=== PATIENT | female | born 1960 | race Caucasian/White ===

== ENCOUNTER 2019-04-21 18:56 | Emergency (ER) | payer MEDICARE, MEDICAID ==
[~2019-04-21] VITALS: Ht 167.6 cm; Wt 77.1 kg
[~2019-04-21 18:56] MED LIST: FOLIC ACID; LORA0.5T; NAPR-243 PO; VALPROIC ACID; VLP250480
--- OUTSIDE RECORDS SUMMARY | 2019-04-21 19:01 | XMS REPORT ---
Author Author DANIEL LEI Organization [facility] Address [address] [place] [address] Care Team Providers Care Sales Inspector Name Role Phone DOPANCHOA Unavailable PROBLEMS Unknown Problems ALLERGIES Substance Reaction Event Type Date Status CODIENE Unknown Non Drug Allergy Dec, Active ENCOUNTERS Encounter Location Date Diagnosis [facility] [id number] [place] [phone] Dec, Encounter for dental examination Z01.20 [facility] [id number] [place] [address] [phone] Apr, Dental examination Z01.20 [facility] [id number] [place] [address] [phone] Dec, Dental examination Z01.20 [facility] [id number] [place] [address] [phone] Oct, Encounter for dental examination and cleaning without abnormal findings Z01.20 IMMUNIZATIONS No Known Immunizations SOCIAL HISTORY Never Assessed REASON FOR VISIT 6 mo recall PLAN OF CARE Activity Details Follow Up 6 Months Reason:Recall VITAL SIGNS Blood pressure systolic 141 mmHg 2017-12-12 Blood pressure diastolic 94 mmHg 2017-12-12 MEDICATIONS Medication Instructions Dosage Frequency Start Date End Date Duration Status Valproic Acid 250 MG/5ML Orally Twice a day 5 ml 12h Active RESULTS No Results PROCEDURES Procedure Date Ordered Result Body Site PERIODIC ORAL EXAMINATION December 12, 2017 INTRAORL-PERIAPICAL 1 FILM 53583 December 12, 2017 PROPHYLAXIS - ADULT December 12, 2017 BITEWINGS - TWO FILMS December 12, 2017 TOPICAL FLUORIDE VARNISH December 12, 2017 INSTRUCTIONS MEDICATIONS ADMINISTERED No Known Medications MEDICAL (GENERAL) HISTORY Type Description Date Medical History APPENDIX REMOVE 2006 Medical History WISDOM TEETH REMOVED Medical History seizures Hospitalization History DEHYDRYATION AUGUST 2016
--- OUTSIDE RECORDS SUMMARY | 2019-04-21 19:01 | XMS REPORT ---
Author Author LEX HOPKINS Organization [facility] Address [address] [place] [address] Phone Unavailable Care Team Providers Care [facility] Psychiatrist Name Role Phone LXE HOPKINS Unavailable Unavailable PROBLEMS Unknown Problems ALLERGIES Substance Reaction Event Type Date Status CODIENE Unknown Non Drug Allergy Oct, Active SOCIAL HISTORY No smoking Hx information available PLAN OF CARE Activity Details Follow Up POSSIBLE FILL #24 [address] ALEJANDRO Reason:POSSIBLE DECAY MESIAL #24 AND PATIENT NEEDS ANDREIA WITH DR ALEJANDRO VITAL SIGNS MEDICATIONS Medication Instructions Dosage Frequency Start Date End Date Duration Status Valproic Acid 250 MG/5ML Orally Twice a day 5 ml 12h Active RESULTS No Results PROCEDURES Procedure Date Ordered Related Diagnosis Body Site INTRAORL-PERIAPICAL 1 FILM 43284 Oct 16, 2016 PANORAMIC FILM SEE ALSO CODE 54946 Oct 16, 2016 TOPICAL FLUORIDE VARNISH Oct 16, 2016 PROPHYLAXIS - ADULT Oct 16, 2016 Billing Notes on claim Oct 16, 2016 INTRAORL-PERIAPICAL EA ADD FILM Oct 16, 2016 INTRAORL-PERIAPICAL EA ADD FILM Oct 16, 2016 INTRAORL-PERIAPICAL EA ADD FILM Oct 16, 2016 INTRAORL-PERIAPICAL EA ADD FILM Oct 16, 2016 IMMUNIZATIONS No Known Immunizations
--- OUTSIDE RECORDS SUMMARY | 2019-04-21 19:02 | XMS REPORT | Continuity of Care Document ---
Author Organization Unknown Address Unknown Allergies Active Description Code Type Severity Reaction Onset Reported/Identified Relationship to Patient Clinical Status Yes CODEINE SULFATE CODEINE SULFATE SEVERE Yes CODEINE SULFATE SEVERE DERMATOLOGICAL - KRYSTAL Yes CODEINE SULFATE MILD DERMATOLOGICAL - KRYSTAL Yes CODEINE SULFATE MILD OTHER Yes DILANTIN MODERATE DERMATOLOGICAL - KRYSTAL Yes PENICILLINS MODERATE DERMATOLOGICAL - KRYSTAL Yes codeine [id number] Drug Allergy Unknown N/A 12/09/2007 Medications Medication Packaging Start Date Stop Date Route Dosage Sig ONDANSETRON VIAL INJ 4 MG/2CC (ZOFRAN 2CC VIAL) MG 08/27/2016 08/27/2016 PRN ONCE NORMAL SALINE 1000CC IV BAG INJ 0.9 % (NS 1000CC IV BAG) ml 08/27/2016 09/11/2016 CONTINUOUSEVERY 0 Hour Lidocaine HCl jelly 2% 5cc tube (Xylocaine) ELISABET 02/13/2017 02/13/2017 ONCE&2315 ASA 81MG CHEWABLE TAB 81 MG (BABY ASPIRIN) MG 05/23/2017 05/23/2017 ONCE&0510 NORMAL SALINE 1000CC IV BAG INJ 0.9 % (NS 1000CC IV BAG) ml 06/06/2017 06/21/2017 CONTINUOUSEVERY 0 Hour NORMAL SALINE 1000CC IV BAG INJ 0.9 % (NS 1000CC IV BAG) ml 06/06/2017 06/21/2017 CONTINUOUSEVERY 0 Hour Valproic acid oral solution 250mg/5cc (Depakote) MLS 06/06/2017 07/06/2017 BID&0800,2000 PANTOPAZOLE VIAL INJ 40 MG (PROTONIX IV) MG 06/07/2017 06/16/2017 Daily&0900 Problems Date Dx Coded Attending Type Code Diagnosis Diagnosed By 08/27/2016 MEDHAT MEYER 276.51 DEHYDRATION 08/27/2016 BATTAGLER, MEDHAT A 558.9 OTHER AND UNSPECIFIED NONINFECTIOUS GASTROENTERITIS AND COLITIS 08/27/2016 BETSYJAMIMEDHAT W E86.0 DEHYDRATION 08/27/2016 MEDHAT MEYER A K52.9 NONINFECTIVE GASTROENTERITIS AND COLITIS, UNSPECIFIED 02/13/2017 Nova Norman A 780.39 OTHER CONVULSIONS 02/13/2017 Nova Norman W 989.5 TOXIC EFFECT OF VENOM 02/13/2017 Nova Norman A R56.9 UNSPECIFIED CONVULSIONS 02/13/2017 Nova Norman W T63.461A TOXIC EFFECT OF VENOM OF WASPS, ACCIDENTAL, INIT 06/08/2017 Mohan Rutherford W 345.90 EPILEPSY, UNSPECIFIED, WITHOUT MENTION OF INTRACTABLE EPILEPSY 06/08/2017 Mohan Rutherford W 458.9 06/08/2017 Mohan Rutherford W 780.2 SYNCOPE AND COLLAPSE 06/08/2017 BrownMohan W 780.79 OTHER MALAISE AND FATIGUE 06/08/2017 Mohan Rutherford W 787.91 DIARRHEA 06/08/2017 Mohan Rutherford W G40.909 EPILEPSY, UNSP, NOT INTRACTABLE, WITHOUT STATUS EPILEPTICUS 06/08/2017 Mohan Rutherford W I95.9 HYPOTENSION, UNSPECIFIED 06/08/2017 BrownMohan W R19.7 DIARRHEA, UNSPECIFIED 06/08/2017 BrownMohan W R53.1 WEAKNESS 06/08/2017 BrownMohan W R55 SYNCOPE AND COLLAPSE 07/02/2017 BrownMohan W 599.0 URINARY TRACT INFECTION, SITE NOT SPECIFIED 07/02/2017 BrownMohan W P39.3 URINARY TRACT INFECTION 07/02/2017 Brown Mohan W 599.0 URINARY TRACT INFECTION, SITE NOT SPECIFIED 07/02/2017 Brown Mohan W P39.3 URINARY TRACT INFECTION 09/21/2017 Helga Hogan W 345.80 OTHER FORMS OF EPILEPSY AND RECURRENT SEIZURES, WITHOUT MENTION OF INTRACTABLE EPILEPSY 09/21/2017 Helga Hogan W 530.81 ESOPHAGEAL REFLUX 09/21/2017 Helga Hogan W 780.39 OTHER CONVULSIONS 09/21/2017 Helga Hogan W G40.89 OTHER SEIZURES 09/21/2017 Helga Hogan W K21.9 GASTRO- ESOPHAGEAL REFLUX DISEASE WITHOUT ESOPHAGITIS 09/21/2017 Samira, Helga W R56.9 UNSPECIFIED CONVULSIONS 06/14/2018 Samira, Helga W 780.39 OTHER CONVULSIONS 06/14/2018 Samira, Helga W R56.9 UNSPECIFIED CONVULSIONS 06/14/2018 Samira, Helga W 319 UNSPECIFIED INTELLECTUAL DISABILITIES 06/14/2018 Samira, Helga W 530.81 ESOPHAGEAL REFLUX 06/14/2018 Samira, Helga W 780.39 OTHER CONVULSIONS 06/14/2018 Samira, Helga W 788.30 URINARY INCONTINENCE, UNSPECIFIED 06/14/2018 Samira, Helga W 794.4 NONSPECIFIC ABNORMAL RESULTS OF FUNCTION STUDY OF KIDNEY 06/14/2018 Samira, Helga W F79 UNSPECIFIED INTELLECTUAL DISABILITIES 06/14/2018 Samira, Helga W K21.9 GASTRO- ESOPHAGEAL REFLUX DISEASE WITHOUT ESOPHAGITIS 06/14/2018 Samira, Helga W R32 UNSPECIFIED URINARY INCONTINENCE 06/14/2018 Samira, Helga W R56.9 UNSPECIFIED CONVULSIONS 06/14/2018 Samira, Helga W R94.4 ABNORMAL RESULTS OF KIDNEY FUNCTION STUDIES 06/14/2018 Samira, Helga W 319 UNSPECIFIED INTELLECTUAL DISABILITIES 06/14/2018 Samira, Helga W 530.81 ESOPHAGEAL REFLUX 06/14/2018 Samira, Helga W 780.39 OTHER CONVULSIONS 06/14/2018 Samira, Helga W 788.30 URINARY INCONTINENCE, UNSPECIFIED 06/14/2018 Samira, Helga W 794.4 NONSPECIFIC ABNORMAL RESULTS OF FUNCTION STUDY OF KIDNEY 06/14/2018 Samira, Helga W F79 UNSPECIFIED INTELLECTUAL DISABILITIES 06/14/2018 Samira, Helga W K21.9 GASTRO- ESOPHAGEAL REFLUX DISEASE WITHOUT ESOPHAGITIS 06/14/2018 Samira, Helga W R32 UNSPECIFIED URINARY INCONTINENCE 06/14/2018 Samira, Helga W R56.9 UNSPECIFIED CONVULSIONS 06/14/2018 Samira, Helga W R94.4 ABNORMAL RESULTS OF KIDNEY FUNCTION STUDIES 07/16/2018 Samira, Helga W 780.39 OTHER CONVULSIONS 07/16/2018 Samira, Helga W R56.9 UNSPECIFIED CONVULSIONS 09/26/2018 Samira, Helga W 780.39 OTHER CONVULSIONS 09/26/2018 Samira, Helga W R56.9 UNSPECIFIED CONVULSIONS 09/26/2018 Samira, Helga W V72.31 ROUTINE GYNECOLOGICAL EXAMINATION 09/26/2018 Samira, Helga W V76.19 OTHER SCREENING BREAST EXAMINATION 09/26/2018 Helga Hogan Z01.411 ENCOUNTER FOR GYNECOLOGICAL EXAMINATION (GENERAL) (ROUTINE) WITH ABNORMAL FINDINGS 09/26/2018 Helga Hogan Z12.39 ENCOUNTER FOR OTHER SCREENING FOR MALIGNANT NEOPLASM OF BREAST 09/26/2018 Helga Hogan W 780.39 OTHER CONVULSIONS 09/26/2018 Helga Hogan R56.9 UNSPECIFIED CONVULSIONS 09/26/2018 Helga Hogan V72.31 ROUTINE GYNECOLOGICAL EXAMINATION 09/26/2018 Helga Hogan V76.19 OTHER SCREENING BREAST EXAMINATION 09/26/2018 Helga Hogan Z01.411 ENCOUNTER FOR GYNECOLOGICAL EXAMINATION (GENERAL) (ROUTINE) WITH ABNORMAL FINDINGS 09/26/2018 Helga Hogan Z12.39 ENCOUNTER FOR OTHER SCREENING FOR MALIGNANT NEOPLASM OF BREAST 10/31/2018 Helga Hogan W 319 UNSPECIFIED INTELLECTUAL DISABILITIES 10/31/2018 Helga Hogan W 530.81 ESOPHAGEAL REFLUX 10/31/2018 Helga Hogan W 780.39 OTHER CONVULSIONS 10/31/2018 Helga Hogan F79 UNSPECIFIED INTELLECTUAL DISABILITIES 10/31/2018 Helga Hogan K21.9 GASTRO- ESOPHAGEAL REFLUX DISEASE WITHOUT ESOPHAGITIS 10/31/2018 Helga Hogan R56.9 UNSPECIFIED CONVULSIONS 10/31/2018 Helga Hogan V72.31 ROUTINE GYNECOLOGICAL EXAMINATION 10/31/2018 Helga Hogan V76.19 OTHER SCREENING BREAST EXAMINATION 10/31/2018 Helga Hogan Z01.411 ENCOUNTER FOR GYNECOLOGICAL EXAMINATION (GENERAL) (ROUTINE) WITH ABNORMAL FINDINGS 10/31/2018 Helga Hogan Z12.39 ENCOUNTER FOR OTHER SCREENING FOR MALIGNANT NEOPLASM OF BREAST Procedures There is no data. Results Test Result Range Urinalysis - 08/27/16 14:20 Influenza - 08/27/16 14:29 Influenza NEGATIVE FOR A and B 0.00-0.00 Urinalysis - 08/27/16 16:17 Icotest N/A Negative Urine Casts Calcium Oxalate- Occassional ; Amorphous Material -Few Urine Volume Urine Volume Sufficient (10mL) Urine Yeast No Yeast present Urine-Appearance Clear Clear Urine-Bacteria Trace Urine-Bilirubin Negative Negative Urine-Blood Negative Negative Urine-Color Yellow Colorless-Lt. Yellow Urine-Epithelial Cells 5-10/HPF Urine-Glucose Negative Negative Urine-Ketones Negative Negative Urine-Leukocytes Negative Negative Urine-Nitrite Negative Negative Urine-Other Urine Saved if Culture Needed (48hrs from time of collection) Urine-pH 6.0 5-8.5 Urine-Protein Negative Negative Urine-RBC 0-2/HPF Urine-Specific [place] <=1.005 1.000-1.030 Urine-WBC 2-5/HPF Urobilinogen 0.2 E.U./dL 0.2-1.0 BMP - 08/30/16 12:11 Anion Gap 12 6-14 BUN 8 mg/dL 5-25 Calcium 9.3 mg/dL 8.3-10.4 Chloride 105 mmol/L 95-114 CO2 31 mEq/L 22-33 Creat 0.91 mg/dL 0.50-1.50 eGFR 64 mL/min/1.73m2 >59 Glucose 83 mg/dL 70-110 Osmo 295 280-295 Potassium 4.1 mmol/L 3.5-5.3 Sodium 144 mmol/L 134-148 Valproic Acid - 12/26/16 09:52 Valproic Acid 72.6 ug/mL 55.0-105.0 Comprehensive Metabolic Panel - 02/13/17 23:05 Albumin 3.4 g/dL 3.6-5.1 ALP 51 U/L 35-130 ALT 28 U/L 6-45 Anion Gap 12 6-14 AST 25 U/L 2-40 BUN 20 mg/dL 5-25 Calcium 8.9 mg/dL 8.3-10.4 Chloride 105 mmol/L 95-114 CO2 27 mEq/L 22-33 Creat 1.28 mg/dL 0.50-1.50 eGFR 43 mL/min/1.73m2 >59 Globulin 2.9 g/dL 2.3-3.5 Glucose 106 mg/dL 70-110 Osmo 292 280-295 Potassium 4.4 mmol/L 3.5-5.3 Sodium 140 mmol/L 134-148 TBil 0.3 mg/dL 0.2-1.2 TP 6.3 g/dL 6.0-8.3 Valproic Acid - 02/13/17 23:05 Valproic Acid 71.9 ug/mL 55.0-105.0 Urinalysis - 02/14/17 00:09 Icotest N/A Negative Urine Crystals Amorphous material: few/HPF Urine Volume Urine Volume Sufficient (10mL) Urine-Appearance Slightly cloudy Clear Urine-Bacteria Trace Urine-Bilirubin Negative Negative Urine-Blood Trace-lysed Negative Urine-Color Yellow Colorless-Lt. Yellow Urine-Epithelial Cells 0-5/HPF Urine-Glucose Negative Negative Urine-Ketones Negative Negative Urine-Leukocytes 1+ Negative Urine-Nitrite Negative Negative Urine-Other Culture to follow Urine-pH 5.5 5-8.5 Urine-Protein Negative Negative Urine-RBC 0-2/HPF Urine-Specific [place] 1.010 1.000-1.030 Urine-WBC 5-10/HPF Urobilinogen 0.2 0.2-1.0 Urine Culture - 02/14/17 00:10 PRELIM CULTURE RESULTS >100,000 Gram Positive Mixed Samira [id number] Skin Contaminant FINAL CULTURE RESULTS No Further Workup done MEDIA PLATED Setup at 00:33 on 02/14/2017 CULTURE SOURCE voided urine Troponin I - 05/23/17 05:05 Troponin <0.020 ng/mL 0.0-0.4 Troponin I - 05/23/17 06:49 Troponin <0.020 ng/mL 0.0-0.4 Thyroid Stimulating Hormone - 06/06/17 10:40 TSH 4.71 mIU/mL 0.32-5.00 Urinalysis - 06/06/17 12:13 Icotest N/A Negative Urine Volume Urine Volume Sufficient (10mL) Urine Yeast No Yeast present Urine-Appearance Clear Clear Urine-Bacteria Negative Urine-Bilirubin Negative Negative Urine-Blood Negative Negative Urine-Color Yellow Colorless-Lt. Yellow Urine-Glucose Negative Negative Urine-Ketones Negative Negative Urine-Leukocytes Negative Negative Urine-Nitrite Negative Negative Urine-Other Urine Saved if Culture Needed (48hrs from time of collection) Urine-pH 7.0 5-8.5 Urine-Protein Negative Negative Urine-RBC Negative Urine-Specific [place] 1.010 1.000-1.030 Urine-WBC Rare/HPF Urobilinogen 0.2 E.U./dL 0.2-1.0 Cardiac Panel - 06/06/17 13:45 CK 119 U/L 26-174 CK-MB 2.8 ng/ml 0.0-9.2 Myoglobin 99.7 ng/ml 1.6-106.0 Troponin <0.020 ng/mL 0.0-0.4 Cardiac Panel - 06/06/17 16:33 CK 116 U/L 26-174 CK-MB 2.5 ng/ml 0.0-9.2 Myoglobin 98.1 ng/ml 1.6-106.0 Troponin <0.020 ng/mL 0.0-0.4 Cardiac Panel - 06/06/17 22:41 CK 108 U/L 26-174 CK-MB 2.1 ng/ml 0.0-9.2 Myoglobin 92.8 ng/ml 1.6-106.0 Troponin 0.063 ng/mL 0.000-0.400 BMP - 06/07/17 07:05 Anion Gap 12 6-14 BUN 6 mg/dL 5-25 Calcium 8.8 mg/dL 8.3-10.4 Chloride 106 mmol/L 95-114 CO2 26 mEq/L 22-33 Creat 0.91 mg/dL 0.50-1.50 eGFR 64 mL/min/1.73m2 >59 Glucose 72 mg/dL 70-110 Osmo 284 280-295 Potassium 4.5 mmol/L 3.5-5.3 Sodium 139 mmol/L 134-148 Urinalysis, Dipstick Only - 07/02/17 16:20 Urine-Bilirubin Negative Negative Urine-Blood Negative Negative Urine-Glucose Negative Negative Urine-Ketones Negative Negative Urine-Leukocytes Trace Negative Urine-Nitrite Negative Negative Urine-pH 7.0 5-8.5 Urine-Protein Negative Negative Urine-Specific [place] 1.015 1.000-1.030 Urobilinogen 0.2 E.U./dL 0.2-1.0 Urine Culture - 07/02/17 16:20 PRELIM CULTURE RESULTS <10,000 Gram Positive Mixed Samira [id number] Skin Contaminant FINAL CULTURE RESULTS 10,000-20,000 Gram Positive Mixed Samira [id number] Skin Contaminant [id number] Further Workup done MEDIA PLATED Setup at 14:25 on 07/03/2017 CULTURE SOURCE [id number] Thyroid Stimulating Hormone - 09/21/17 13:47 TSH 2.69 mIU/mL 0.32-5.00 Valproic Acid - 12/14/17 09:18 Valproic Acid 69.8 ug/mL 55.0-105.0 Valproic Acid - 04/03/18 08:12 Valproic Acid 114.8 ug/mL 55.0-105.0 Valproic Acid - 04/19/18 08:07 Valproic Acid 88.6 ug/mL 55.0-105.0 Valproic Acid - 06/14/18 13:50 Valproic Acid 147.5 ug/mL 55.0-105.0 Valproic Acid - 07/16/18 09:10 Valproic Acid 88.2 ug/mL 55.0-105.0 Valproic Acid - 09/26/18 15:03 Valproic Acid 111.3 ug/mL 55.0-105.0 Pap IG (Image Guided) - 09/26/18 15:03 DIAGNOSIS: Comment Specimen adequacy: Comment Performed by: Comment QC reviewed by: Comment . . Note: Comment Test Methodology: Comment Valproic Acid - 10/31/18 08:22 Valproic Acid 94.4 ug/mL 55.0-105.0 Encounters ACCT No. Visit Date/Time Discharge Status Pt. Type Provider Facility Loc./Unit Complaint [id number] 08/22/2013 13:58:00 08/22/2013 16:53:00 DIS Emergency [id number] 04/21/2019 18:57:00 ACT Emergency LORENZO CHAVIS APRN [facility] ER R KNEE PAIN [id number] 12/12/2017 14:00:00 12/12/2017 23:59:59 CLS Outpatient RAYMOND MCNAMARA [facility] [id number] 10/31/2018 08:17:00 10/31/2018 23:59:00 DIS Outpatient SamiraHelga [id number] 09/26/2018 15:03:00 09/26/2018 23:59:00 DIS Outpatient Samira, Helga [id number] 07/16/2018 09:07:00 07/16/2018 23:59:00 DIS Outpatient Samira, Helga [id number] 06/14/2018 14:31:00 06/14/2018 23:59:00 DIS Outpatient Samira, Helga [id number] 04/19/2018 08:04:00 04/19/2018 23:59:00 DIS Outpatient Samira, Helga [id number] 04/03/2018 08:09:00 04/03/2018 23:59:00 DIS Outpatient SamiraHelga [id number] 12/14/2017 09:06:00 12/14/2017 23:59:00 DIS Outpatient Helga Hogan [id number] 09/21/2017 13:47:00 09/21/2017 23:59:00 DIS Outpatient Helga Hogan [id number] 07/03/2017 09:52:00 07/03/2017 23:59:00 DIS Outpatient Mohan Rutherford [id number] 07/02/2017 19:10:00 07/02/2017 23:59:00 DIS Outpatient Mohan Rutherford [id number] 06/06/2017 10:33:00 06/08/2017 22:57:00 DIS Outpatient KrishOmidMohan [facility]G [id number] 05/23/2017 04:23:00 05/23/2017 07:34:00 DIS Outpatient [facility] ER [id number] 02/13/2017 22:32:00 02/13/2017 23:58:00 [id number] 12/26/2016 09:49:00 12/26/2016 23:59:00 DIS Outpatient Omid Rutherfordlas [id number] 08/30/2016 12:04:00 08/30/2016 23:59:00 DIS Outpatient Mohan Rutherford [id number] 08/27/2016 14:11:00 08/27/2016 17:40:00 DIS Outpatient BETSY [facility] ER [id number] 08/27/2016 14:31:42 Document Registration [id number] 07/02/2017 19:10:00 Document Registration [id number] 10/03/2018 18:09:00 Document Registration
--- OUTSIDE RECORDS SUMMARY | 2019-04-21 19:02 | XMS REPORT ---
Author Author LINDA ALONZO Organization [facility] Address [address] [place] [address] Phone Unavailable Care Team Providers Care Mixer Lever Operator Name Role Phone LINDA ALONZO Unavailable Unavailable PROBLEMS Unknown Problems ALLERGIES Substance Reaction Event Type Date Status CODIENE Unknown Non Drug Allergy Apr, Active ENCOUNTERS Encounter Location Date Diagnosis [facility] [address] [id number] [id number] Dec, Encounter for dental examination Z01.20 [facility] [address] [id number] [id number] Apr, Dental examination Z01.20 [facility] [address] [id number] [id number] Dec, Dental examination Z01.20 [facility] [address] [id number] [phone] Oct, Encounter for dental examination and cleaning without abnormal findings Z01.20 IMMUNIZATIONS No Known Immunizations SOCIAL HISTORY Never Assessed REASON FOR VISIT prophy PLAN OF CARE Activity Details Follow Up 6 Months Reason:recall VITAL SIGNS Blood pressure systolic 116 mmHg 2017-04-16 Blood pressure diastolic 76 mmHg 2017-04-16 MEDICATIONS Medication Instructions Dosage Frequency Start Date End Date Duration Status Valproic Acid 250 MG/5ML Orally Twice a day 5 ml 12h Active RESULTS No Results PROCEDURES Procedure Date Ordered Result Body Site PROPHYLAXIS - ADULT April 16, 2017 TOPICAL FLUORIDE VARNISH April 16, 2017 INSTRUCTIONS MEDICATIONS ADMINISTERED No Known Medications MEDICAL (GENERAL) HISTORY Type Description Date Medical History APPENDIX REMOVE 2006 Medical History WISDOM TEETH REMOVED Medical History seizures Hospitalization History DEHYDRYATION AUGUST 2016
--- NOTE | 2019-04-21 19:08 | ED Lower Extremity ---
General Stated Complaint: R KNEE PAIN Source: patient Exam Limitations: no limitations History of Present Illness Date Seen by Provider: Apr 21, 2019 Time Seen by Provider: 19:09 Initial Comments To ER with reports of right knee pain. [place] she went to get from her chair up and states that her knee "gave out". She did not fall to the floor but was slowly lowered. She was then helped up and in the car. Onset: just prior to arrival Severity: moderate Pain/Injury Location: right knee Method of Injury: fell Modifying Factors: Worse With Movement Allergies and Home Medications Allergies Coded Allergies: Codeine (Verified Allergy, Unknown, 12/09/07) Home Medications Naproxen 500 Mg Tablet, 1 EACH PO BID PRN for PAIN Prescribed by: LORENZO CHAVIS on 08/22/13 1600 Patient Home Medication List Home Medication List Reviewed: Yes Review of Systems Constitutional: see HPI EENTM: see HPI Respiratory: no symptoms reported Cardiovascular: no symptoms reported Genitourinary: no symptoms reported Musculoskeletal: see HPI Skin: no symptoms reported Psychiatric/Neurological: No Symptoms Reported Past Twvthjh-Cvmrra-Eebvxh Hx Patient Social History Recent Foreign Travel: No Contact w/Someone Who Travel: No Physical Exam Vital Signs Vital Signs - First Documented 04/21/19 19:00 Temp 98.3 Pulse 99 Resp 20 B/P (MAP) 146/98 (114) Pulse Ox 97 O2 Delivery Room Air Capillary Refill : Height, Weight, BMI Height: '" Weight: 170lbs. oz. 77.384776zo; BMI Method: General Appearance: WD/WN, no apparent distress Respiratory: no respiratory distress, no accessory muscle use Hips: bilateral hip non-tender, bilateral hip normal inspection, bilateral hip normal range of motion Legs: bilateral leg non-tender, bilateral leg normal inspection, bilateral leg normal range of motion Knees: right knee pain, right knee other (no deformity no effusion. Hold the leg in full extension at the knee. Posterior tibial pulses are nonpalpable bilaterally, dopplerable bilaterally.) Ankles: bilateral ankle non-tender, bilateral ankle normal inspection, bilateral ankle normal range of motion Feet: bilateral foot non-tender, bilateral foot normal inspection Neurologic/Psychiatric: alert, normal mood/affect, oriented x 3 Skin: normal color, warm/dry Progress/Results/Core Measures Results/Orders My Orders Orders - LORENZO CHAVIS BISTRO ATTENDANT Oxycodone/Apap 5/325mg Tablet (Percocet (04/21/19 19:15) Knee, Right, 3 Views (04/21/19 19:07) Tibia/Fibula, Right, 2 Views (04/21/19 19:07) Vital Signs/I&O 04/21/19 19:00 Temp 98.3 Pulse 99 Resp 20 B/P (MAP) 146/98 (114) Pulse Ox 97 O2 Delivery Room Air Departure Impression Primary Impression: Internal derangement of right knee Disposition: HOME, SELF-CARE Condition: Stable Departure-Patient Inst. Decision time for Depature: 19:56 Referrals: NO,LOCAL PHYSICIAN (PCP/Family) Primary Care Physician Patient Instructions: Internal Derangement of the Knee Add. Discharge Instructions: 1. Pain medication as directed which should include Tylenol and ibuprofen. Ice pack to the knee. Follow-up with your doctor next week for recheck and possibly MRI if no improvement in symptoms. Scripts Oxycodone HCl/Acetaminophen (Percocet 5-325 mg Tablet) 1 Each Tablet 1 TAB PO Q4H PRN for PAIN-MODERATE MDD 6 for 7 Days, #14 TAB Prov: LORENZO CHAVIS APRN 04/21/19 LORENZO CHAVIS APRN Apr 21, 2019 19:08
[2019-04-21] MEDS ORDERED: oxyCODONE/APAP 5/325MG (PERCOCET 5) TABLET PO ONE (19:15)
--- NOTE | 2019-04-21 19:37 | Diagnostic Imaging Report ---
INDICATION: Knee gave out. Unable to bend knee. Knee pain. EXAMINATION: Right knee dated 04/21/2019. FINDINGS: Three views of the knee demonstrate patellofemoral narrowing. Minimal medial compartment narrowing is also seen. There are no fractures or dislocations. There is a small joint effusion. IMPRESSION: 1. Degenerative findings with small joint effusion. 2. No acute fractures. Dictated by: Dictated on workstation # [id number]
--- NOTE | 2019-04-21 19:38 | Diagnostic Imaging Report ---
INDICATION: Right knee and leg pain after injury EXAMINATION: Tibia-fibula right 04/21/19 FINDINGS: Three views of the tibia and fibula The visualized aspects of the ankle appear grossly unremarkable. There are no fractures seen within the visualized tibia and fibula. IMPRESSION: 1. No acute process. Dictated by: Dictated on workstation # [id number]
[2019-04-21] MEDS ORDERED: OXYC-199 PO (20:06)
[2019-04-21 20:26] VITALS: BP 146/98
== END 2019-04-21 20:26 | disposition home or self-care (01) ==
LOC: EDUNIT# 18:56 → ER 18:57
DX: M23.91 Unspecified internal derangement of right knee (principal); Z88.5 Allergy status to narcotic agent; X50.1XXA Overexertion from prolonged static or awkward postures, initial encounter
CPT/HCPCS: 73562; 73590

== ENCOUNTER 2020-04-06 10:38 | Emergency (ER) | payer MEDICARE, MEDICAID ==
[~2020-04-06] VITALS: Ht 165 cm; Wt 74.0 kg
[~2020-04-06 10:38] MED LIST changes: +OXYC-199 PO
[2020-04-06] MEDS ORDERED: FAMOTIDINE 20MG/2ML IV (PEPCID) IVP ONE (11:00)
[2020-04-06] MEDS ORDERED: LIDOCAINE 2% VISCOUS 15 ML UDC PO ONE (11:00)
[2020-04-06] MEDS ORDERED: ANTACID SUSP 30 ML UDC (MYLANTA) PO ONE (11:00)
[2020-04-06 11:06] LABS: BASOPHILS % (AUTO) 0 % (0-10); EOSINOPHILS # (AUTO) 0.1 10^3/uL (0.0-0.3); EOSINOPHILS % (AUTO) 2 % (0-10); HEMATOCRIT 44 % (35-52); HEMOGLOBIN 14.5 G/DL (11.5-16.0); LYMPHOCYTES # (AUTO) 2.6 X 10^3 (1.0-4.0); LYMPHOCYTES % (AUTO) 44 % (12-44); MEAN CORPUSCULAR HEMOGLOBIN 32 PG (25-34); MEAN CORPUSCULAR HGB CONC 33 G/DL (32-36); MEAN CORPUSCULAR VOLUME 96 FL (80-99); MEAN PLATELET VOLUME 9.6 FL (7.4-10.4); MONOCYTES # (AUTO) 0.7 X 10^3 (0.0-1.0); MONOCYTES % (AUTO) 12 % (0-12); NEUTROPHILS # (AUTO) 2.5 X 10^3 (1.8-7.8); NEUTROPHILS % (AUTO) 42 % (42-75); PLATELET COUNT 274 10^3/uL (130-400); RED CELL DISTRIBUTION WIDTH 13.6 % (10.0-14.5); WHITE BLOOD COUNT 5.9 10^3/uL (4.3-11.0)
[2020-04-06 11:15] LABS: ALBUMIN 4.1 GM/DL (3.2-4.5)
[2020-04-06 11:16] LABS: POTASSIUM 4.2 MMOL/L (3.6-5.0)
[2020-04-06 11:17] LABS: CALCIUM 9.5 MG/DL (8.5-10.1)
[2020-04-06 11:18] LABS: INR 0.9 (0.8-1.4); PROTHROMBIN TIME PATIENT 12.1 SEC (12.2-14.7)
[2020-04-06 11:20] LABS: BILIRUBIN,TOTAL 0.3 MG/DL (0.1-1.0)
[2020-04-06 11:22] LABS: CREATININE SERUM 1.04 MG/DL (0.60-1.30)
[2020-04-06 11:24] LABS: MAGNESIUM 2.1 MG/DL (1.6-2.4)
--- NOTE | 2020-04-06 11:40 | Diagnostic Imaging Report ---
Portable erect AP chest at 1110 hours. INDICATION: Shortness of breath. There are no prior studies available for comparison. FINDINGS: The heart size is within normal limits. The lungs are clear. There is no evidence for failure, pneumonia or for pleural effusion. The mediastinum is not widened. The osseous structures are intact. IMPRESSION: There is no evidence for an acute cardiopulmonary abnormality. Dictated by: Dictated on workstation # [id number]
--- NOTE | 2020-04-06 11:48 | NUR ---
TALKING WITH THE PT AT THIS TIME.
--- OUTSIDE RECORDS SUMMARY | 2020-04-06 11:56 | XMS REPORT | Continuity of Care Document ---
Demographics Preferred Language Unknown Marital Status Unknown Buddhism Affiliation Unknown Race Unknown Ethnic Group Unknown Author Organization Unknown Address Unknown Phone Unavailable Allergies Active Description Code Type Severity Reaction Onset Reported/Identified Relationship to Patient Clinical Status Yes CODEINE SULFATE C ODEINE SULFATE SEVERE Yes CODEINE SULFATE S EVERE DERMATOLOGICAL - KRYSTAL Yes CODEINE SULFATE MILD DERMATOLOGICAL - KRYSTAL Yes CODEINE SULFATE MILD MILD Yes CODEINE SULFATE MILD OTHER Yes DILANTIN MODERATE DERMATOLOGICAL - KRYSTAL Yes DILANTIN MODERATE MODERATE Yes PENICILLINS MODERATE DERMATOLOGICAL - KRYSTAL Yes PENICILLINS MODERATE MODERATE Yes codeine [id number] Drug Allergy Unknown N/A 12/09/2007 Medications Medication Packaging Start Date St op Date Route Dosage Sig ONDANSETRON VIAL INJ 4 MG/2CC (ZOFRAN 2CC VIAL) MG 08/27/2016 08/27/2016 PRN ONCE NORMAL SALINE 1000CC IV BAG INJ 0.9 % (NS 1000CC IV BAG) ml 08/27/2016 09/11/2016 CONTINUOUSEVERY 0 Hour Lidocaine HCl jelly 2% 5cc tube (Xylocain e) ELISABET 02/13/2017 02/13/2017 ONCE&2315 ASA 81MG CHEWABLE [...] MG (PROTONIX IV) MG 06/07/2017 06/16/2017 Daily&0900 KETOROLAC VIAL INJ 30 MG/CC (TORADOL VIAL) MG 10/21/2019 10/21/2019 ONCE&1547 Sore Throat (phenol) spray (Chloraseptic) SPRAY 10/21/2019 10/31/2019 PRN EVERY 2 Hour Problems Date Dx Coded Attending Type Code Diagnosis Diagnosed By 08/27/2016 MEDHAT MEYER 276.5 1 DEHYDRATION 08/27/2016 MEDHAT MEYER 558.9 OTHER AND UNSPECIFIED NONINFECTIOUS GASTROENTERITIS AND COLITIS 08/27/2016 MEDHAT MEYER E86.0 DEHYDRATION 08/27/2016 MEDHAT MEYER K52.9 NONINFECTIVE GASTROENTERITIS AND COLITIS, UNSPECIFIED 02/13/2017 Nova Norman A 780.39 OTHER CONVULSIONS 02/13/2017 Nova Norman 989.5 TOXIC EFFECT OF VENOM 02/13/2017 Nova Norman R56.9 UNSPECIFIED CONVULSIONS 02/13/2017 Nova Norman T63.461 A TOXIC EFFECT OF VENOM OF WASPS, ACCIDENTAL, INIT 06/08/2017 Mohan Rutherford W 345.90 EPILEPSY, UNSPECIFIED, WITHOUT MENTION OF INTRACTABLE EPILEPSY 06/08/2017 Mohan Rutherford W 458.9 06/08/2017 Mohan Rutherford 780.2 SYNCOPE AND COLLAPSE 06/08/2017 Mohan Rutherford W 780.79 OTHER MALAISE AND FATIGUE 06/08/2017 Mohan Rutherford W 787.91 DIARRHEA 06/08/2017 Mohan Rutherford G40.909 EPILEPSY, UNSP, NOT INTRACTABLE, WITHOUT STATUS EPILEPTICUS 06/08/2017 Mohan Rutherford I95.9 HYPOTENSION, UNSPECIFIED 06/08/2017 Mohan Rutherford R19.7 DIARRHEA, UNSPECIFIED 06/08/2017 Mohan Rutherford W R53.1 WEAKNESS 06/08/2017 Mohan Rutherford W R55 SYNCOPE AND COLLAPSE 07/02/2017 Mohan Rutherford W 599.0 URINARY TRACT INFECTION, SITE NOT SPECIFIED 07/02/2017 Mohan Rutherford P39.3 URINARY TRACT INFECTION 07/02/2017 W 599.0 URIN MARKEL TRACT INFECTION, SITE NOT SPECIFIED 07/02/2017 W P39.3 NEON ATAL URINARY TRACT INFECTION 07/02/2017 Mohan Rutherford 599.0 URINARY TRACT INFECTION, SITE NOT SPECIFIED 07/02/2017 Brown, Mohan W P39.3 URINARY TRACT INFECTION 09/18/2017 W 345.80 OTH ER FORMS OF EPILEPSY AND RECURRENT SEIZURES, WITHOUT MENTION OF INTRACTABLE EPILEPSY 09/18/2017 W 530.81 ESO PHAGEAL REFLUX 09/18/2017 W 780.39 OTH ER CONVULSIONS 09/18/2017 W G40.89 OTH ER SEIZURES 09/18/2017 W K21.9 RHONDA RO-ESOPHAGEAL REFLUX DISEASE WITHOUT ESOPHAGITIS 09/18/2017 W R56.9 UNSP ECIFIED CONVULSIONS 09/21/2017 SamiraHelga W 345.80 OTHER FORMS OF EPILEPSY AND RECURRENT SEIZURES, WITHOUT MENTION OF INTRACTABLE EPILEPSY 09/21/2017 Samira, Helga W 530.81 ESOPHAGEAL REFLUX 09/21/2017 Samira, Helga W 780.39 OTHER CONVULSIONS 09/21/2017 SamiraHelga W G40.89 OTHER SEIZURES 09/21/2017 SamiraHelga W K21.9 GASTRO- ESOPHAGEAL REFLUX DISEASE WITHOUT ESOPHAGITIS 09/21/2017 SamiraHelga W R56.9 UNSPECIFIED CONVULSIONS 09/21/2017 W 345.80 OTH ER FORMS OF EPILEPSY AND RECURRENT SEIZURES, WITHOUT MENTION OF INTRACTABLE EPILEPSY 09/21/2017 W 530.81 ESO PHAGEAL REFLUX 09/21/2017 W 780.39 OTH ER CONVULSIONS 09/21/2017 W G40.89 OTH ER SEIZURES 09/21/2017 W K21.9 RHONDA RO-ESOPHAGEAL REFLUX DISEASE WITHOUT ESOPHAGITIS 09/21/2017 W R56.9 UNSP ECIFIED CONVULSIONS 06/14/2018 Samira, Helga W 780.39 OTHER CONVULSIONS 06/14/2018 Samira, Helga W R56.9 UNSPECIFIED CONVULSIONS 06/14/2018 SamiraHelga W 319 UNSPECIFIED INTELLECTUAL DISABILITIES 06/14/2018 SamiraHelga W 530.81 ESOPHAGEAL REFLUX 06/14/2018 Samira, Helga W 780.39 OTHER CONVULSIONS 06/14/2018 Samira, Helga W 788.30 URINARY INCONTINENCE, UNSPECIFIED 06/14/2018 SamiraAmaliahy W 794.4 NONSPECIFIC ABNORMAL RESULTS OF FUNCTION STUDY OF KIDNEY 06/14/2018 Samira Helga W F79 UNSPECIFIED INTELLECTUAL DISABILITIES 06/14/2018 Samira Helga W K21.9 GASTRO- ESOPHAGEAL REFLUX DISEASE WITHOUT ESOPHAGITIS 06/14/2018 Smaira Helga W R32 UNSPECIFIED URINARY INCONTINENCE 06/14/2018 [...] ABNORMAL RESULTS OF KIDNEY FUNCTION STUDIES 06/14/2018 W 319 UNSPEC IFIED INTELLECTUAL DISABILITIES 06/14/2018 W 530.81 ESO PHAGEAL REFLUX 06/14/2018 W 704.1 HIRS UTISM 06/14/2018 W 780.39 OTH ER CONVULSIONS 06/14/2018 W 788.30 URI NARY INCONTINENCE, UNSPECIFIED 06/14/2018 W 794.4 NONS PECIFIC ABNORMAL RESULTS OF FUNCTION STUDY OF KIDNEY 06/14/2018 W F79 UNSPEC IFIED INTELLECTUAL DISABILITIES 06/14/2018 W K21.9 RHONDA RO-ESOPHAGEAL REFLUX DISEASE WITHOUT ESOPHAGITIS 06/14/2018 W L68.0 HIRS UTISM 06/14/2018 W R32 UNSPEC IFIED URINARY INCONTINENCE 06/14/2018 W R56.9 UNSP ECIFIED CONVULSIONS 06/14/2018 W R94.4 ABNO RMAL RESULTS OF KIDNEY FUNCTION STUDIES 07/16/2018 Samira, Helga W 780.39 OTHER CONVULSIONS 07/16/2018 Samira, Helga W R56.9 UNSPECIFIED CONVULSIONS 09/26/2018 Samira, Helga W 780.39 OTHER CONVULSIONS 09/26/2018 Samira, Helga W R56.9 UNSPECIFIED CONVULSIONS 09/26/2018 Samira, Helga W V72.31 ROUTINE GYNECOLOGICAL EXAMINATION 09/26/2018 SamiraHelga W V76.19 OTHER SCREENING BREAST EXAMINATION 09/26/2018 SamiraHelga W Z01.411 ENCOUNTER FOR GYNECOLOGICAL EXAMINATION (GENERAL) (ROUTINE) WITH ABNORMAL FINDINGS 09/26/2018 SamiraHelga W Z12.39 ENCOUNTER FOR OTHER SCREENING FOR MALIGNANT NEOPLASM OF BREAST 09/26/2018 Samira, Helga W 780.39 OTHER CONVULSIONS 09/26/2018 Samira, Helga W R56.9 UNSPECIFIED CONVULSIONS 09/26/2018 Samira, Helga W V72.31 ROUTINE GYNECOLOGICAL EXAMINATION 09/26/2018 SamiraHelga W V76.19 OTHER SCREENING BREAST EXAMINATION 09/26/2018 SamiraHelga W Z01.411 ENCOUNTER FOR GYNECOLOGICAL EXAMINATION (GENERAL) (ROUTINE) WITH ABNORMAL FINDINGS 09/26/2018 SamiraHelga W Z12.39 ENCOUNTER FOR OTHER SCREENING FOR MALIGNANT NEOPLASM OF BREAST 09/26/2018 W 319 UNSPEC IFIED INTELLECTUAL DISABILITIES 09/26/2018 W 530.81 ESO PHAGEAL REFLUX 09/26/2018 W 780.39 OTH ER CONVULSIONS 09/26/2018 W F79 UNSPEC IFIED INTELLECTUAL DISABILITIES 09/26/2018 W K21.9 RHONDA RO-ESOPHAGEAL REFLUX DISEASE WITHOUT ESOPHAGITIS 09/26/2018 W R56.9 UNSP ECIFIED CONVULSIONS 09/26/2018 W V72.31 ROU AHMET GYNECOLOGICAL EXAMINATION 09/26/2018 W V76.19 OTH ER SCREENING BREAST EXAMINATION 09/26/2018 W Z01.411 EN COUNTER FOR GYNECOLOGICAL EXAMINATION (GENERAL) (ROUTINE) WITH ABNORMAL FINDINGS 09/26/2018 W Z12.39 ENC OUNTER FOR OTHER SCREENING FOR MALIGNANT NEOPLASM OF BREAST 10/31/2018 SamiraHelga W 319 UNSPECIFIED INTELLECTUAL DISABILITIES 10/31/2018 Samira, Helga W 530.81 ESOPHAGEAL REFLUX 10/31/2018 SamiraHelga W 780.39 OTHER CONVULSIONS 10/31/2018 Samira, Helga W F79 UNSPECIFIED INTELLECTUAL DISABILITIES 10/31/2018 Samira, Helga W K21.9 GASTRO- ESOPHAGEAL REFLUX DISEASE WITHOUT ESOPHAGITIS 10/31/2018 Samira, Helga W R56.9 UNSPECIFIED CONVULSIONS 10/31/2018 Samira, Helga W V72.31 ROUTINE GYNECOLOGICAL EXAMINATION 10/31/2018 SamiraHelga W V76.19 OTHER SCREENING BREAST EXAMINATION 10/31/2018 SamiraHelga W Z01.411 ENCOUNTER FOR GYNECOLOGICAL EXAMINATION (GENERAL) (ROUTINE) WITH ABNORMAL FINDINGS 10/31/2018 SamiraHelga W Z12.39 ENCOUNTER FOR OTHER SCREENING FOR MALIGNANT NEOPLASM OF BREAST 04/21/2019 LORENZO CHAVIS APRN Ot M23.91 UNSPECIFIED INTERNAL DERANGEMENT OF RIGH 04/21/2019 LORENZO CHAVIS APRN Ot M25.561 PAIN IN RIGHT KNEE 04/21/2019 LORENZO CHAVIS APRN Ot X50.1XXA OVEREXERTION FROM PROLONGED STATIC OR AW 04/21/2019 LORENZO CHAVIS APRN Ot Z88 .5 ALLERGY STATUS TO NARCOTIC AGENT STATUS 04/28/2019 LORENZO CHAVIS APRN Ot M23.91 UNSPECIFIED INTERNAL DERANGEMENT OF RIGH 04/28/2019 LORENZO CHAVIS APRN Ot M25.561 PAIN IN RIGHT KNEE 04/28/2019 LORENZO CHAVIS APRN Ot X50.1XXA OVEREXERTION FROM PROLONGED STATIC OR AW 04/28/2019 LORENZO CHAVIS APRN Ot Z88 .5 ALLERGY STATUS TO NARCOTIC AGENT STATUS 04/29/2019 W 719.46 JONATHON N IN JOINT INVOLVING LOWER LEG 04/29/2019 W 782.2 LOCA LIZED SUPERFICIAL SWELLING, MASS, OR LUMP 04/29/2019 W M25.561 PA IN IN RIGHT KNEE 04/29/2019 W R22.40 LOC ALIZED SWELLING, MASS AND LUMP, UNSPECIFIED LOWER LIMB 04/30/2019 SamiraHelga W 719.46 PAIN IN JOINT INVOLVING LOWER LEG 04/30/2019 Samira Helga W M25.561 PAIN IN RIGHT KNEE 04/30/2019 Samira Helga W 719.46 PAIN IN JOINT INVOLVING LOWER LEG 04/30/2019 Samira Helga W M25.561 PAIN IN RIGHT KNEE 06/18/2019 W B34.9 SHABNAM L INFECTION, UNSPECIFIED 06/18/2019 W E86.0 DEHY DRATION 06/18/2019 W F79 UNSPEC IFIED INTELLECTUAL DISABILITIES 06/18/2019 W G40.89 OTH ER SEIZURES 06/18/2019 W K21.9 RHONDA RO-ESOPHAGEAL REFLUX DISEASE WITHOUT ESOPHAGITIS 06/18/2019 W M25.561 PA IN IN RIGHT KNEE 06/18/2019 W R07.9 CHES T PAIN, UNSPECIFIED 06/18/2019 W R19.7 DIAR JUAN, UNSPECIFIED 06/18/2019 W R22.40 LOC ALIZED SWELLING, MASS AND LUMP, UNSPECIFIED LOWER LIMB 06/18/2019 W R55 SYNCOP E AND COLLAPSE 06/18/2019 W R56.9 UNSP ECIFIED CONVULSIONS 06/18/2019 W R94.4 ABNO RMAL RESULTS OF KIDNEY FUNCTION STUDIES 06/18/2019 W T63.461A T OXIC EFFECT OF VENOM OF WASPS, ACCIDENTAL, INIT 06/18/2019 W Z01.411 EN CNTR FOR NICKEL OPERATOR EXAM (GENERAL) (ROUTINE) W ABNORMAL FINDINGS 06/18/2019 W Z12.39 ENCOU 10/21/2019 Reese Richardson B34.9 VIRAL INFECTION, UNSPECIFIED 10/21/2019 Reese Richardson E86.0 DEHYDRATION 10/21/2019 Reese Richardson F79 UNSPECIFIED INTELLECTUAL DISABILITIES 10/21/2019 Reese Richardson G40.89 OTHER 10/21/2019 Reese Richardson K21.9 GASTRO-ESOPHAGEAL REFLUX DISEASE WITHOUT ESOPHAGITIS 10/21/2019 Reese Richardson M25.561 PAIN IN RIGHT KNEE 10/21/2019 Reese Richardson R07.9 CHEST PAIN, UNSPECIFIED 10/21/2019 Reese Richardson R19.7 DIARRHEA, UNSPECIFIED 10/21/2019 Reese Richardson R22.40 LOCALIZED SWELLING, MASS AND LUMP, UNSPECIFIED LOWER LIMB 10/21/2019 Reese Richardson R55 SYNCOPE AND COLLAPSE 10/21/2019 Reese Richardson R56.9 UNSPECIFIED CONVULSIONS 10/21/2019 Reese Richardson R94.4 ABNORMAL RESULTS OF KIDNEY FUNCTION STUDIES 10/21/2019 Reese Richardson T63.461A TOXIC EFFECT OF VENOM OF WASPS, ACCIDENTAL, INIT 10/21/2019 Reese Richardson Z01.411 ENCNTR FOR NICKEL OPERATOR EXAM (GENERAL) (ROUTINE) W ABNORMAL FINDINGS 10/21/2019 Reese Richardson Z12.39 ENCOUNTER FOR OTH SCREENING FOR MALIGNANT NEOPLASM OF BREAST Procedures There is no data. Results Test Result Range Urinalysis - 08/27/16 14:20 Influenza - 08/27/16 14:29 Influenza NEGATIVE FOR A and B 0.00-0.0 0 Urinalysis - 08/27/16 16:17 Icotest N/A Negative Urine Casts Calcium Oxalate- Occassional ; Amorphous Material -Few Urine Volume Urine Volume Sufficient (10mL) Urine Yeast No Yeast present Urine-Appearance Clear Clear Urine-Bacteria Trace Urine-Bilirubin Negative Negative Urine-Blood Negative Negative Urine-Color Yellow Colorless-Lt. [place] ow Urine-Epithelial Cells 5-10/HPF Urine-Glucose Negative Negative Urine-Ketones Negative Negative Urine-Leukocytes Negative Negative Urine-Nitrite Negative Negative Urine-Other Urine Saved if Culture Need ed (48hrs from time of collection) Urine-pH 6.0 5-8.5 Urine-Protein Negative Negative Urine-RBC 0-2/HPF Urine-Specific [place] <=1.005 1.000-1 .030 Urine-WBC 2-5/HPF Urobilinogen 0.2 E.U./dL 0.2-1.0 BMP [...] Negative Urine-Blood Trace-lysed Negative Urine-Color Yellow Colorless-Lt. [place] ow Urine-Epithelial Cells 0-5/HPF Urine-Glucose Negative Negative Urine-Ketones Negative Negative Urine-Leukocytes 1+ Negative Urine-Nitrite Negative Negative Urine-Other Culture to follow Urine-pH 5.5 5-8.5 Urine-Protein Negative Negative Urine-RBC 0-2/HPF Urine-Specific [place] 1.010 1.000-1 .030 Urine-WBC 5-10/HPF Urobilinogen 0.2 0.2-1.0 Urine Culture - 02/14/17 00:10 PRELIM CULTURE RESULTS >100,000 Gram Positiv e Mixed Samira [id number] Skin Contaminant FINAL CULTURE RESULTS No Further Workup done MEDIA PLATED Setup at 00:33 on 02/14/2017 CULTURE SOURCE voided urine Troponin I - 05/23/17 05:05 Troponin <0.020 ng/mL 0.0-0.4 Troponin I - 05/23/17 06:49 Troponin <0.020 ng/mL 0.0-0.4 Thyroid Stimulating Hormone - 06/06/17 1 0:40 TSH 4.71 mIU/mL 0.32-5.00 Urinalysis - 06/06/17 12:13 Icotest N/A Negative Urine Volume Urine Volume Sufficient (10mL) Urine Yeast No Yeast present Urine-Appearance Clear Clear Urine-Bacteria Negative Urine-Bilirubin Negative Negative Urine-Blood Negative Negative Urine-Color Yellow Colorless-Lt. [place] ow Urine-Glucose Negative Negative Urine-Ketones Negative Negative Urine-Leukocytes Negative Negative Urine-Nitrite Negative Negative Urine-Other Urine Saved if Culture Need ed (48hrs from time of collection) Urine-pH 7.0 5-8.5 Urine-Protein Negative Negative Urine-RBC Negative Urine-Specific Atlantic 1.010 1.000-1 .030 Urine-WBC Rare/HPF Urobilinogen 0.2 E.U./dL 0.2-1.0 Cardiac [...] mmol/L 134-148 Urinalysis, Dipstick Only - 07/02/17 16: 20 Urine-Bilirubin Negative Negative Urine-Blood Negative Negative Urine-Glucose Negative Negative Urine-Ketones Negative Negative Urine-Leukocytes Trace Negative Urine-Nitrite Negative Negative Urine-pH 7.0 5-8.5 Urine-Protein Negative Negative Urine-Specific [place] 1.015 1.000-1 .030 Urobilinogen 0.2 E.U./dL 0.2-1.0 Urine Culture - 07/02/17 16:20 PRELIM CULTURE RESULTS <10,000 Gram Positive Mixed Samira [id number] Skin Contaminant FINAL CULTURE RESULTS 10,000-20,000 Gram Pos itive Mixed Samira [id number] Skin Contaminant [id number] Further Workup done MEDIA PLATED Setup at 14:25 on 07/03/2017 CULTURE SOURCE [id number] Thyroid Stimulating Hormone - 09/21/17 1 3:47 TSH 2.69 mIU/mL 0.32-5.00 Valproic Acid - 12/14/17 09:18 Valproic Acid 69.8 ug/mL 55.0-105.0 Valproic Acid - 04/03/18 08:12 Valproic Acid 114.8 ug/mL 55.0-105.0 Valproic Acid - 04/19/18 08:07 Valproic Acid 88.6 ug/mL 55.0-105.0 Valproic Acid - 06/14/18 13:50 Valproic Acid 147.5 ug/mL 55.0-105.0 Valproic Acid - 07/16/18 09:10 Valproic Acid 88.2 ug/mL 55.0-105.0 Pap IG (Image Guided) - 09/26/18 15:03 DIAGNOSIS: Comment Specimen adequacy: Comment Performed by: Comment QC reviewed by: Comment . . Note: Comment Test Methodology: Comment Valproic Acid - 09/26/18 15:03 Valproic Acid 111.3 ug/mL 55.0-105.0 Valproic Acid - 10/31/18 08:22 Valproic Acid 94.4 ug/mL 55.0-105.0 Mycoplasma - 10/21/19 14:55 Mycoplasma Negative Negative Influenza - 10/21/19 15:38 Influenza NEGATIVE FOR A and B 0.00-0.0 0 Complete blood count (CBC) with automate d white blood cell (WBC) differential - 04/06/20 10:50 Blood leukocytes automated count (number/volume) 5.9 10*3/uL 4.3-11.0 Blood erythrocytes automated count (number/volume) 4.54 10*6/uL 4.35-5.85 Venous blood hemoglobin measurement (mass/volume) 14.5 g/dL 11.5-16.0 Blood hematocrit (volume fraction) 44 % 35-52 Automated erythrocyte mean corpuscular volume 96 [ foz_us] 80-99 Automated erythrocyte mean corpuscular h emoglobin (mass per erythrocyte) 32 pg 25-34 Automated erythrocyte mean corpuscular h emoglobin concentration measurement (mass/volume) 33 g/dL 32-36 Automated erythrocyte distribution width ratio 13. 6 % 10.0- 14.5 Automated blood platelet count (count/volume) 274 10*3/uL 130-400 Automated blood platelet mean volume measurement 9.6 [foz_us] 7.4-10.4 Automated blood neutrophils/100 leukocytes 42 % 42-75 Automated blood lymphocytes/100 leukocytes 44 % 12-44 Blood monocytes/100 leukocytes 12 % 0-12 Automated blood eosinophils/100 leukocytes 2 % 0-10 Automated blood basophils/100 leukocytes 0 % 0-10 Blood neutrophils automated count (number/volume) 2.5 10*3 1.8-7.8 Blood lymphocytes automated count (number/volume) 2.6 10*3 1.0-4.0 Blood monocytes automated count (number/volume) 0. 7 10*3 0.0-1.0 Automated eosinophil count 0.1 10*3/uL 0 .0-0.3 Automated blood basophil count (count/volume) 0.0 10*3/uL 0.0-0.1 Comprehensive metabolic panel - 04/06/20 10:50 Serum or plasma sodium measurement (moles/volume) 141 mmol/L 135-145 Serum or plasma potassium measurement (moles/volume) 4.2 mmol/L 3.6-5.0 Serum or plasma chloride measurement (moles/volume) 106 mmol/L 98-107 Carbon dioxide 28 mmol/L 21-32 Serum or plasma anion gap determination (moles/volume) 7 mmol/L 5-14 Serum or plasma urea nitrogen measurement (mass/volume ) 18 mg/dL 7-18 Serum or plasma creatinine measurement (mass/volume) 1.04 mg/dL 0.60-1.30 Serum or plasma urea nitrogen/creatinine mass ratio 17 NRG Serum or plasma creatinine measurement w ith calculation of estimated glomerular filtration rate 54 NRG Serum or plasma glucose measurement (mass/volume) 93 mg/dL 70-105 Serum or plasma calcium measurement (mass/volume) 9.5 mg/dL 8.5-10.1 Serum or plasma total bilirubin measurement (mass/volu me) 0.3 mg/dL 0.1-1.0 Serum or plasma alkaline phosphatase zaid surement (enzymatic activity/volume) 66 U/L 40-136 Serum or plasma aspartate aminotransfera se measurement (enzymatic activity/volume) 22 U/L 5-34 Serum or plasma alanine aminotransferase measurement (enzymatic activity/volume) 28 U/L 0-55 Serum or plasma protein measurement (mass/volume) 7.0 g/dL 6.4-8.2 Serum or plasma albumin measurement (mass/volume) 4.1 g/dL 3.2-4.5 CALCIUM CORRECTED 9.4 mg/dL 8.5-10.1 PT panel in platelet poor plasma by coag ulation assay - 04/06/20 10:50 Prothrombin time (PT) in platelet poor plasma by coagu lation assay 12.1 s 12.2-14.7 INR in platelet poor plasma or blood by coagulation as say 0.9 0.8-1.4 Activated partial thromboplastin time (a PTT) in platelet poor plasma bycoagulation assay - 04/06/20 10:50 Activated partial thromboplastin time (a PTT) in platelet poor plasma bycoagulation assay 26 s 24-35 Magnesium - 04/06/20 10:50 Magnesium 2.1 mg/dL 1.6-2.4 Myoglobin, serum - 04/06/20 10:50 Myoglobin, serum 52.7 ng/mL 10.0-92.0 Serum or plasma troponin i.cardiac measu rement (mass/volume) - 04/06/20 10:50 Serum or plasma troponin i.cardiac measurement (mass/v olume) < ng/mL <0.028 Encounters ACCT No. Visit Date/Time Discharge Status Pt. Type Provider Facility Loc./Unit Complaint [id number] 10/03/2018 18:09:00 Document Registration [id number] 04/21/2019 18:57:00 019 20:26:00 DIS Emergency LORENZO CHAVIS APRN [facility] ER R KNEE PAIN [id number] 08/22/2013 13:58:00 013 16:53:00 DIS Emergency [id number] 04/06/2020 11:07:00 Document Registration [id number] 03/23/2020 11:00:00 03/23/2020 23:59:5 9 CLS Outpatient [facility] [id number] 07/02/2017 19:10:00 Document Registration [id number] 10/21/2019 14:43:00 10/21/2019 16:25 :00 DIS Outpatient Dylan [facility] ER [id number] 09/23/2019 12:56:00 09/23/2019 23:59 :00 DIS Outpatient HALEIGH RODRIGUEZ [id number] 05/02/2019 10:12:00 05/02/2019 23:59: 00 DIS Outpatient CAROLYNEDANIELA [id number] 05/02/2019 11:00:00 05/02/2019 11:00: 00 CAN Outpatient CAROLYNEDANIELA [id number] 04/30/2019 00:00:00 04/30/2019 23:59: 00 DIS Outpatient Samira, Helga [id number] 03/20/2019 13:06:00 03/20/2019 23:59: 00 DIS Outpatient HALEIGH RODRIGUEZ [id number] 10/31/2018 08:17:00 10/31/2018 23:59: 00 DIS Outpatient Samira, Helga [id number] 09/26/2018 15:03:00 09/26/2018 23:59: 00 DIS Outpatient Samira, Helga [id number] 09/10/2018 13:21:00 09/10/2018 23:59: 00 DIS Outpatient HALEIGH RODRIGUEZ [id number] 07/16/2018 09:07:00 07/16/2018 23:59: 00 DIS Outpatient Samira, Helga [id number] 06/14/2018 14:31:00 06/14/2018 23:59: 00 DIS Outpatient Samira, Helga [id number] 04/19/2018 08:04:00 04/19/2018 23:59: 00 DIS Outpatient Samira, Helga [id number] 04/03/2018 08:09:00 04/03/2018 23:59: 00 DIS Outpatient Samira, Helga [id number] 03/26/2018 12:58:00 03/26/2018 23:59: 00 DIS Outpatient HALEIGH RODRIGUEZ [id number] 12/14/2017 09:06:00 12/14/2017 23:59: 00 DIS Outpatient Samira, Helga [id number] 09/21/2017 13:47:00 09/21/2017 23:59: 00 DIS Outpatient Samira, Helga [id number] 07/03/2017 09:52:00 07/03/2017 23:59: 00 DIS Outpatient Mohan Rutherford [id number] 07/02/2017 19:10:00 07/02/2017 23:59: 00 DIS Outpatient Mohan Rutherford [id number] 06/06/2017 10:33:00 06/08/2017 22:57: 00 DIS Outpatient Mohan Rutherford [place] [facility] MED-SURG [id number] 05/23/2017 04:23:00 05/23/2017 07:34: 00 DIS Outpatient AshiaLorenzo [facility] ER [id number] 02/13/2017 22:32:00 02/13/2017 23:58: 00 DIS Outpatient Nova Norman [facility] ER [id number] 12/26/2016 09:49:00 12/26/2016 23:59: 00 DIS Outpatient Mohan Rutherford [id number] 08/30/2016 12:04:00 08/30/2016 23:59: 00 DIS Outpatient Mohan Rutherford [id number] 08/27/2016 14:11:00 08/27/2016 17:40: 00 DIS Outpatient MEDHAT MEYER [facility] ER [id number] 05/06/2019 08:49:49 Document Registration [id number] 04/29/2019 14:02:00 Document Registration [id number] 09/26/2018 12:59:00 Document Registration [id number] 06/14/2018 13:08:00 Document Registration [id number] 09/21/2017 10:01:00 Document Registration [id number] 09/18/2017 13:06:00 Document Registration [id number] 07/02/2017 14:33:00 Document Registration [id number] 08/27/2016 14:31:42 Document Registration
--- NOTE | 2020-04-06 12:39 | ED Chest Pain ---
General Chief Complaint: Chest Pain Stated Complaint: SOA;CHEST PAIN Nursing Triage Note: COMPLAINS OF CHEST PAIN ET MORE SO WHEN SHE MOVES. Nursing Sepsis Screen: No Definite Risk Source: patient Exam Limitations: no limitations History of Present Illness Date Seen by Provider: Apr 06, 2020 Time Seen by Provider: 10:40 Initial Comments This 60-year-old woman presents to the emergency room with central chest pain an d epigastric pain that started around 08:00. She denies any associated symptoms. Pain is reproducible with palpation. She has no known cardiac issues. She does report some recent acid reflux. She does have some pain with inspiration. Pain radiates to the right side of her back. Chart review reveals a history of celiac disease. Allergies and Home Medications Allergies Coded Allergies: codeine (Verified Allergy, Unknown, 12/09/07) Home Medications Famotidine 20 Mg Tablet, 20 MG PO BID Prescribed by: PALLAVI CHAVEZ on 04/06/20 1423 Naproxen 500 Mg Tablet, 1 EACH PO BID PRN for PAIN Prescribed by: LORENZO CHAVIS on 08/22/13 1600 Oxycodone HCl/Acetaminophen 1 Each Tablet, 1 TAB PO Q4H PRN for PAIN-MODERATE Prescribed by: LORENZO CHAVIS on 04/21/192005 Patient Home Medication List Home Medication List Reviewed: Yes Review of Systems Review of Systems Constitutional: no symptoms reported EENTM: No Symptoms Reported Respiratory: See HPI Cardiovascular: See HPI Gastrointestinal: See HPI Genitourinary: No Symptoms Reported Musculoskeletal: see HPI Skin: no symptoms reported Psychiatric/Neurological: No Symptoms Reported Endocrine: No Symptoms Reported Hematologic/Lymphatic: No Symptoms Reported Past Ssuppmo-Uqaoty-Tzwcld Hx Past Med/Social Hx: Reviewed Nursing Past Med/Soc Hx Patient Social History Alcohol Use: Denies Use Recreational Drug Use: No Smoking Status: Never a Smoker Recent Foreign Travel: No Contact w/Someone Who Travel: No Recent Infectious Disease Expo: No Recent Hopitalizations: No Seasonal Allergies Seasonal Allergies: No Past Medical History Surgeries: Yes Orthopedic Respiratory: No Cardiac: No Neurological: Yes (MR) Seizure Disorder : No 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 oz. 77.441359wb; 27.00 BMI Method:Stated General Appearance: WD/WN, Mild Distress HEENT: PERRL/EOMI, Normal ENT Inspection Neck: Normal Inspection Respiratory: Lungs Clear, Normal Breath Sounds, No Accessory Muscle Use, No Respiratory Distress, Other (Anterior chest wall tender to palpation) Cardiovascular: Regular Rate, Rhythm, No Edema, No Murmur, Normal Peripheral Pulses Gastrointestinal: Normal Bowel Sounds, Soft, Tenderness (Epigastrium) Extremity: Normal Inspection, Non Tender, No Calf Tenderness, No Pedal Edema Neurologic/Psychiatric: Alert, Oriented x3, No Motor/Sensory Deficits, Normal Mood/Affect Skin: Normal Color, Warm/Dry Progress/Results/Core Measures Results/Orders Lab Results Laboratory Tests Test 04/06/20 10:50 04/06/20 12:48 Range/Units White Blood Count 5.9 4.3-11.0 10^3/uL Red Blood Count 4.54 4.35-5.85 10^6/uL Hemoglobin 14.5 11.5-16.0 G/DL Hematocrit 44 35-52 % Mean Corpuscular Volume 96 80-99 FL Mean Corpuscular Hemoglobin 32 25-34 PG Mean Corpuscular Hemoglobin Concent 33 32-36 G/DL Red Cell Distribution Width 13.6 10.0-14.5 % Platelet Count 274 130-400 10^3/uL Mean Platelet Volume 9.6 7.4-10.4 FL Neutrophils (%) (Auto) 42 42-75 % Lymphocytes (%) (Auto) 44 12-44 % Monocytes (%) (Auto) 12 0-12 % Eosinophils (%) (Auto) 2 0-10 % Basophils (%) (Auto) 0 0-10 % Neutrophils # (Auto) 2.5 1.8-7.8 X 10^3 Lymphocytes # (Auto) 2.6 1.0-4.0 X 10^3 Monocytes # (Auto) 0.7 0.0-1.0 X 10^3 Eosinophils # (Auto) 0.1 0.0-0.3 10^3/uL Basophils # (Auto) 0.0 0.0-0.1 10^3/uL Prothrombin Time 12.1 L 12.2-14.7 SEC INR Comment 0.9 0.8-1.4 Activated Partial Thromboplast Time 26 24-35 SEC Sodium Level 141 135-145 MMOL/L Potassium Level 4.2 3.6-5.0 MMOL/L Chloride Level 106 98-107 MMOL/L Carbon Dioxide Level 28 21-32 MMOL/L Anion Gap 7 5-14 MMOL/L Blood Urea Nitrogen 18 7-18 MG/DL Creatinine 1.04 0.60-1.30 MG/DL Estimat Glomerular Filtration Rate 54 BUN/Creatinine Ratio 17 Glucose Level 93 70-105 MG/DL Calcium Level 9.5 8.5-10.1 MG/DL Corrected Calcium 9.4 8.5-10.1 MG/DL Magnesium Level 2.1 1.6-2.4 MG/DL Total Bilirubin 0.3 0.1-1.0 MG/DL Aspartate Amino Transf (AST/SGOT) 22 5-34 U/L Alanine Aminotransferase (ALT/SGPT) 28 0-55 U/L Alkaline Phosphatase 66 40-136 U/L Myoglobin 52.7 10.0-92.0 NG/ML Troponin I < 0.028 < 0.028 <0.028 NG/ML C-Reactive Protein High Sensitivity 0.10 0.00-0.50 MG/DL Total Protein 7.0 6.4-8.2 GM/DL Albumin 4.1 3.2-4.5 GM/DL Lipase 111 H 8-78 U/L My Orders Orders - PALLAVI MENJIVAR MD Cbc With Automated Diff (04/06/20 10:44) Magnesium (04/06/20 10:44) Chest 1 View, Ap/Pa Only (04/06/20 10:44) Ekg Tracing (04/06/20 10:44) Comprehensive Metabolic Panel (04/06/20 10:44) Myoglobin Serum (04/06/20 10:44) Protime With Inr (04/06/20 10:44) Partial Thromboplastin Time (04/06/20 10:44) O2 (04/06/20 10:44) Monitor-Rhythm Ecg Trace Only (04/06/20 10:44) Ed Iv/Invasive Line Start (04/06/20 10:44) Troponin I (04/06/20 10:44) Lidocaine 2% Viscous 15 Ml (Xylocaine Vi (04/06/20 11:00) Antacid Suspension (Mylanta Suspension (04/06/20 11:00) Famotidine Injection (Pepcid Injection) (04/06/20 11:00) Hs C Reactive Protein (04/06/20 11:30) Lipase (04/06/20 11:30) Troponin I (04/06/20 12:50) Us Gallbladder [id number] (04/06/20 12:39) Medications Given in ED Current Medications Medications Dose Ordered Sig/Kathy Route Start Time Stop Time Status Last Admin Dose Admin Al Hydrox/Mg Hydrox/Simethicone 30 ml ONCE ONCE PO 04/06/20 11:00 04/06/20 11:01 DC 04/06/20 11:21 30 ML Lidocaine HCl 15 ml ONCE ONCE PO 04/06/20 11:00 04/06/20 11:01 DC 04/06/20 11:21 15 ML Vital Signs/I&O 04/06/20 04/06/20 10:38 15:07 Temp 37.0 36.9 Pulse 81 78 Resp 16 16 B/P (MAP) 153/99 (117) 159/95 Pulse Ox 98 97 O2 Delivery Room Air Room Air Blood Pressure Mean: 117 Progress Progress Note #1: Time: 12:49 Progress Note Pain resolved with GI cocktail. She still has some minimal epigastric tenderness. 2 hour troponin is pending. Lipase returned slightly elevated so we will obtain a gallbladder ultrasound to ensure she does not have gallstone pancreatitis. Progress Note #2: Progress Note Gallbladder ultrasound was unremarkable. Patient was advised to review her medications with her primary care provider as her elevated lipase may be related to medication effect. Repeat troponin was negative. Initial ECG Impression Date: Apr 06, 2020 Initial ECG Impression Time: 10:36 Initial ECG Rate: 84 Initial ECG Rhythm: Normal Sinus Initial ECG Intervals: Normal Initial ECG Impression: Normal Comment Normal sinus rhythm with no ST elevation or depression. No abnormal intervals or axis deviation. Diagnostic Imaging Diagonstic Imaging: Xray Plain Films/CT/US/NM/MRI: chest Comments NAME: KEITH HARRIS [facility] REC#: [id number] PT STATUS: REG ER : 1960 PHYSICIAN: PALLAVI MENJIVAR MD ADMIT DATE: 04/06/20/ER Signed Date of Exam:04/06/20 CHEST 1 VIEW, AP/PA ONLY Portable erect AP chest at 1110 hours. INDICATION: Shortness of breath. There are no prior studies available for comparison. FINDINGS: The heart size is within normal limits. The lungs are clear. There is no evidence for failure, pneumonia or for pleural effusion. The mediastinum is not widened. The osseous structures are intact. IMPRESSION: There is no evidence for an acute cardiopulmonary abnormality. Dictated by: Dictated on workstation # [id number] Dict: 04/06/20 1136 Trans: 04/06/20 1205 [id number] Interpreted by: MENDOZA GONZALEZ MD Electronically signed by: MENDOZA GONZALEZ MD 04/06/20 1209 Reviewed: Reviewed by Me Diagonstic Imaging: Ultrasound Plain Films/CT/US/NM/MRI: abdomen Comments Gallbladder ultrasound discussed with the radiologist and report reviewed. See report below: NAME: KEITH HARRIS [facility] REC#: [id number] PT STATUS: REG ER : 1960 PHYSICIAN: PALLAVI MENJIVAR MD ADMIT DATE: 04/06/20/ER Draft Date of Exam:04/06/20 US GALLBLADDER [id number] PROCEDURE: US Gallbladder. TECHNIQUE: Multiple Real-time grayscale images were obtained over the right upper quadrant in various projections. INDICATION: Chest pain radiating to the back. FINDINGS: The liver is normal in size at 15.1 cm. No discrete liver mass is detected. The portal vein is patent and shows normal direction of flow. The gallbladder is without stones or sludge. No wall thickening or biliary ductal dilatation is seen. The pancreas is somewhat poorly visualized due to bowel gas. The pancreatic head is unremarkable. The aorta is nonaneurysmal. The IVC is patent. The right kidney was poorly visualized due to bowel gas and patient body habitus. There is no ascites. IMPRESSION: No evidence of cholelithiasis or acute cholecystitis. Dictated on workstation # [id number] Dict: 04/06/20 1442 Trans: 04/06/20 1446 [id number] Interpreted by: RUBY WAGONER MD Departure Impression Primary Impression: Chest pain Qualified Codes: R07.9 - Chest pain, unspecified Additional Impressions: Epigastric pain Pancreatitis Qualified Codes: K85.90 - Acute pancreatitis without necrosis or infection, unspecified Disposition: 01 HOME, SELF-CARE Condition: Improved Departure-Patient Inst. Decision time for Depature: 14:20 Referrals: NO,LOCAL PHYSICIAN (PCP) Primary Care Physician SHELLIE ROY (Family) Primary Care Physician Patient Instructions: Pancreatitis, Severe Abdominal Pain Add. Discharge Instructions: Your pain may be caused by gastritis (stomach inflammation) or acid reflux (heartburn). Take Pepcid (famotidine) twice daily as prescribed for at least one month. You also had a slightly elevated lipase which is a pancreas enzyme. To help treat this consume a clear liquid diet for the next 24 hours. Then gradually advance your diet as tolerated. Follow-up with your primary care provider as soon as possible. Please bring a copy of these papers with you to the follow-up appointment. Return to care. Worsening symptoms. All discharge instructions reviewed with patient and/or family. Voiced understanding. Scripts Famotidine (Pepcid) 20 Mg Tablet 20 MG PO BID, #60 TAB Prov: PALLAVI MENJIVAR MD 04/06/20 PALLAVI MENJIVAR MD Apr 06, 2020 12:38
--- NOTE | 2020-04-06 13:17 | NUR ---
UP TO BATHROOM. DENIES PAIN AT THIS TIME.
[2020-04-06] MEDS ORDERED: FAMO-119 PO (14:23)
--- NOTE | 2020-04-06 14:30 | NUR ---
REPORT RECIEVED FROM LUCRECIA HARRIS.
--- NOTE | 2020-04-06 14:46 | Diagnostic Imaging Report ---
PROCEDURE: US Gallbladder. TECHNIQUE: Multiple Real-time grayscale images were obtained over the right upper quadrant in various projections. INDICATION: Chest pain radiating to the back. FINDINGS: The liver is normal in size at 15.1 cm. No discrete liver mass is detected. The portal vein is patent and shows normal direction of flow. The gallbladder is without stones or sludge. No wall thickening or biliary ductal dilatation is seen. The pancreas is somewhat poorly visualized due to bowel gas. The pancreatic head is unremarkable. The aorta is nonaneurysmal. The IVC is patent. The right kidney was poorly visualized due to bowel gas and patient body habitus. There is no ascites. IMPRESSION: No evidence of cholelithiasis or acute cholecystitis. Dictated by: Dictated on workstation # [id number]
[2020-04-06 15:07] VITALS: BP 159/95
== END 2020-04-06 15:13 | disposition home or self-care (01) ==
LOC: EDUNIT# 10:38 → ER 10:40
DX: R07.9 Chest pain, unspecified (principal); K85.90 Acute pancreatitis without necrosis or infection, unspecified; G40.909 Epilepsy, unspecified, not intractable, without status epilepticus; K90.0 Celiac disease
CPT/HCPCS: 36415; 71045; 76705; 80053; 83690; 83735; 83874; 84484; 85025; 85610; 85730; 86141; 93005

== ENCOUNTER 2020-05-10 05:33 | Outpatient (RCR) | payer MEDICARE, MEDICAID ==
[~2020-05-10] VITALS: Ht 165 cm; Wt 78.1 kg
[~2020-05-10 05:33] MED LIST changes: +FAMO-119 PO; +FOLI0.8C PO; +OMEP20CA18 PO
== END 2020-05-10 10:34 | disposition home or self-care (01) ==
LOC: PREOP 05:33
PROVIDERS: ATTEND Surgery
DX: Z01.812 Encounter for preprocedural laboratory examination (principal); Z20.828 Contact with and (suspected) exposure to other viral communicable diseases; Z12.11 Encounter for screening for malignant neoplasm of colon; K21.9 Gastro-esophageal reflux disease without esophagitis
CPT/HCPCS: 87635

== ENCOUNTER 2020-05-12 09:40 | Day surgery (SDC) | payer MEDICARE, MEDICAID ==
--- NOTE | 2020-05-07 08:09 | HISTORY AND PHYSICAL ---
DATE OF SERVICE: 05/12/2020 DATE OF ADMISSION: 05/12/2020. ATTENDING [employer] ARCHITECT: Helga Hogan APRN HISTORY OF PRESENT ILLNESS: The patient is a 60-year-old female referred over to us for gastroesophageal reflux disease as well as a screening colonoscopy. She has had reflux with epigastric burning sensation as well as crampy pain for several years; however, over the past year she states that this has worsened. She does not report any hematemesis, no coffee-ground emesis. She also is in need of a screening colonoscopy. She has not had one up to this point in her life. She states that she otherwise does not have any major issues with diarrhea nor constipation as well as no red blood per rectum nor any dark tarry stools. She also does not report any family history of colon cancer. PAST MEDICAL HISTORY: Gastroesophageal reflux disease, seizure disorder, which she describes as approximately one episode per year. PAST SURGICAL HISTORY: Left knee arthroscopy, appendectomy. ALLERGIES: CODEINE, PENICILLIN, DILANTIN. MEDICATIONS: Omeprazole 20 mg daily, valproic acid daily. SOCIAL HISTORY: Negative smoke, negative alcohol. FAMILY HISTORY: Mother, diabetes. Father, myocardial infarction in his 80s and hypertension. Paternal grandmother, breast cancer. VITAL SIGNS: Blood pressure 134/80, current weight 172.0 pounds, height 5 feet 5 inches. REVIEW OF SYSTEMS: A well-nourished female in no acute distress. She is not experiencing any shortness of breath or difficulty breathing. No chest pain, palpitations, diaphoresis. No nausea, vomiting with epigastric burning sensation as well as crampy pain. No hematemesis or coffee ground emesis. No red blood per rectum, no dark tarry stools. No fever, chills, no recent inadvertent weight loss. All other review of systems negative. PHYSICAL EXAMINATION: CHEST: Clear. Good breath sounds bilaterally. HEART: Regular, no murmurs. EXTREMITIES: No lower extremity edema, negative Homans sign. HEENT: No scleral icterus. NECK: No cervical lymphadenopathy. ABDOMEN: Soft, nontender, nondistended. SKIN: Warm, dry. ASSESSMENT AND PLAN: A 60-year-old female with a worsening gastroesophageal reflux disease as well as need for screening colonoscopy. The risks and benefits of the procedures were explained to the patient and she is in understanding and would like to proceed with an EGD and colonoscopy as well as biopsies as appropriate. Job ID: [id number] DocumentID: [id number] Dictated Date: 05/05/2020 16:02:40 Chocolate Packer Date: 05/05/2020 16:19:54 Dictated By: SAE CUNNINGHAM MD
[~2020-05-12] VITALS: Ht 165 cm; Wt 78.1 kg
[2020-05-12] MEDS ORDERED: LACTATED RINGERS 1,000 ML IV ONE (09:42)
--- OUTSIDE RECORDS SUMMARY | 2020-05-12 09:49 | XMS REPORT | Continuity of Care Document ---
Demographics Preferred Language Unknown Marital Status Unknown Sikh Affiliation Unknown Race Unknown Ethnic Group Unknown [...] KRYSTAL Yes PENICILLINS MODERATE MODERATE Yes codeine [id number] Drug Allergy Unknown N/A 12/09/2007 Yes codeine [id number] Drug Allergy Severe CONFUSION 05/07/2020 Yes Penicillins [id number] Drug Aller gy Severe CONFUSION 05/07/2020 Medications Medication Packaging Start Date St op [...] SPRAY 10/21/2019 10/31/2019 PRN EVERY 2 Hour GI COCKTAIL SINGLE DOSE LIQ (GRASSHOPPER) ML 04/15/2020 04/15/2020 ONCE&1953 Problems Date Dx Coded Attending Type Code [...] A R56.9 UNSPECIFIED CONVULSIONS 02/13/2017 Nova Norman T63.461 A TOXIC EFFECT OF VENOM OF WASPS, ACCIDENTAL, INIT 06/08/2017 Mohan Rutherford 345.90 EPILEPSY, UNSPECIFIED, WITHOUT MENTION OF INTRACTABLE EPILEPSY 06/08/2017 Mohan Rutherford 458.9 06/08/2017 Mohan Rutherford 780.2 SYNCOPE AND COLLAPSE 06/08/2017 Mohan Rutherford 780.79 OTHER MALAISE AND FATIGUE 06/08/2017 Mohan Rutherford 787.91 DIARRHEA 06/08/2017 Mohan Rutherford G40.909 EPILEPSY, UNSP, NOT INTRACTABLE, WITHOUT STATUS EPILEPTICUS 06/08/2017 Mohan Rutherford I95.9 HYPOTENSION, UNSPECIFIED 06/08/2017 Mohan Rutherford R19.7 DIARRHEA, UNSPECIFIED 06/08/2017 Mohan Rutherford R53.1 WEAKNESS 06/08/2017 Mohan Rutherford R55 SYNCOPE AND COLLAPSE 07/02/2017 Mohan Rutherford 599.0 URINARY TRACT INFECTION, SITE NOT SPECIFIED 07/02/2017 Mohan Rutherford P39.3 URINARY TRACT INFECTION 07/02/2017 W 599.0 URIN MARKEL TRACT INFECTION, SITE NOT SPECIFIED 07/02/2017 W P39.3 NEON ATAL URINARY TRACT INFECTION 07/02/2017 Mohan Rutherford W 599.0 URINARY TRACT INFECTION, SITE NOT SPECIFIED 07/02/2017 Mohan Rutherford W P39.3 URINARY TRACT INFECTION 09/18/2017 W [...] Samira, Helga W 530.81 ESOPHAGEAL REFLUX 09/21/2017 SamiraAmaliahy W 780.39 OTHER CONVULSIONS 09/21/2017 SamiraHelga W [...] Samira, Helga W R56.9 UNSPECIFIED CONVULSIONS 06/14/2018 Samira Helga W 319 UNSPECIFIED INTELLECTUAL DISABILITIES 06/14/2018 Samira, Helga W 530.81 ESOPHAGEAL REFLUX 06/14/2018 Samira, Helga W 780.39 OTHER CONVULSIONS 06/14/2018 Samira Helga W 788.30 URINARY INCONTINENCE, UNSPECIFIED 06/14/2018 Samira Helga W 794.4 NONSPECIFIC ABNORMAL RESULTS OF [...] Samira, Helga W R56.9 UNSPECIFIED CONVULSIONS 09/26/2018 SamiraHelga W 780.39 OTHER CONVULSIONS 09/26/2018 Samira, Helga W R56.9 UNSPECIFIED CONVULSIONS 09/26/2018 SamiraHelga W V72.31 ROUTINE GYNECOLOGICAL EXAMINATION 09/26/2018 SamiraHelga W V76.19 OTHER SCREENING BREAST EXAMINATION 09/26/2018 SamiraHelga W Z01.411 ENCOUNTER FOR GYNECOLOGICAL EXAMINATION (GENERAL) (ROUTINE) WITH ABNORMAL FINDINGS 09/26/2018 SamiraHelga W Z12.39 ENCOUNTER FOR OTHER SCREENING FOR MALIGNANT NEOPLASM OF BREAST 09/26/2018 SamiraHelga W 780.39 OTHER CONVULSIONS 09/26/2018 SamiraHelga W R56.9 UNSPECIFIED CONVULSIONS 09/26/2018 SamiraHelga W V72.31 ROUTINE GYNECOLOGICAL EXAMINATION 09/26/2018 SamiraHelga [...] SamiraHelga W 319 UNSPECIFIED INTELLECTUAL DISABILITIES 10/31/2018 SamiraHelga W 530.81 ESOPHAGEAL REFLUX 10/31/2018 SamiraHelga W 780.39 OTHER CONVULSIONS 10/31/2018 SamiraHelga W F79 UNSPECIFIED INTELLECTUAL DISABILITIES 10/31/2018 SamiraHelga W K21.9 GASTRO- ESOPHAGEAL REFLUX DISEASE WITHOUT ESOPHAGITIS 10/31/2018 SamiraHelga W R56.9 UNSPECIFIED CONVULSIONS 10/31/2018 Helga Hogan W V72.31 ROUTINE GYNECOLOGICAL EXAMINATION 10/31/2018 Helga Hogan W V76.19 OTHER SCREENING BREAST EXAMINATION 10/31/2018 Helga Hogan W Z01.411 ENCOUNTER FOR GYNECOLOGICAL EXAMINATION (GENERAL) (ROUTINE) WITH ABNORMAL FINDINGS 10/31/2018 Helga Hogan W Z12.39 ENCOUNTER FOR OTHER SCREENING FOR MALIGNANT NEOPLASM OF BREAST 04/21/2019 LORENZO CHAVIS CHIEF OPERATOR HYDROFORMER Ot M23.91 UNSPECIFIED INTERNAL DERANGEMENT OF RIGH 04/21/2019 LORENZO CHAVIS CHIEF OPERATOR HYDROFORMER Ot M25.561 PAIN IN RIGHT KNEE 04/21/2019 LORENZO CHAVIS CHIEF OPERATOR HYDROFORMER Ot X50.1XXA OVEREXERTION FROM PROLONGED STATIC OR AW 04/21/2019 LORENZO CHAVIS APRN Ot Z88 .5 ALLERGY STATUS TO NARCOTIC AGENT STATUS 04/28/2019 LORENZO CHAVIS APRN Ot M23.91 UNSPECIFIED INTERNAL DERANGEMENT OF RIGH 04/28/2019 LORENZO CHAVIS APRN Ot M25.561 PAIN IN RIGHT KNEE 04/28/2019 LORENZO CHAVIS APRN Ot X50.1XXA OVEREXERTION FROM PROLONGED STATIC OR AW 04/28/2019 LORENZO CHAVIS CHIEF OPERATOR HYDROFORMER Ot Z88 .5 ALLERGY STATUS TO NARCOTIC AGENT STATUS 04/29/2019 W 719.46 JONATHON N IN JOINT INVOLVING LOWER LEG 04/29/2019 W 782.2 LOCA LIZED SUPERFICIAL SWELLING, MASS, OR LUMP 04/29/2019 W M25.561 PA IN IN RIGHT KNEE 04/29/2019 W R22.40 LOC ALIZED SWELLING, MASS AND LUMP, UNSPECIFIED LOWER LIMB 04/30/2019 SamiraAmaliahy W 719.46 PAIN IN JOINT INVOLVING LOWER [...] INIT 06/18/2019 W Z01.411 EN CNTR FOR ICING AND GLAZE MAKER EXAM (GENERAL) (ROUTINE) W ABNORMAL FINDINGS 06/18/2019 [...] INIT 10/21/2019 Reese Richardson Z01.411 ENCNTR FOR ICING AND GLAZE MAKER EXAM (GENERAL) (ROUTINE) W ABNORMAL FINDINGS 10/21/2019 Howayek, Reese W Z12.39 ENCOUNTER FOR OTH SCREENING FOR MALIGNANT NEOPLASM OF BREAST 04/06/2020 OTTO OSUNA, PALLAVI Arellano Ot G40.909 EPILEPSY, UNSP, NOT INTRACTABLE, WITHOUT 04/06/2020 OTTO OSUNA, PALLAVI Arellano Ot K85.90 ACUTE PANCREATITIS WITHOUT NECROSIS OR I 04/06/2020 PALLAVI MENJIVAR MD Ot K90.0 CELIAC DISEASE 04/06/2020 PALLAVI MENJIVAR MD Ot R07.9 CHEST PAIN, UNSPECIFIED 04/13/2020 OTTO OSUNA, PALLAVI Arellano Ot G40.909 EPILEPSY, UNSP, NOT INTRACTABLE, WITHOUT 04/13/2020 PALLAVI MENJIVAR MD Ot K85.90 ACUTE PANCREATITIS WITHOUT NECROSIS OR I 04/13/2020 OTTO OSUNA, PALLAVI Arellano Ot K90.0 CELIAC DISEASE 04/13/2020 PALLAVI MENJIVAR MD Ot R07.9 CHEST PAIN, UNSPECIFIED 04/15/2020 ROXANNE LAITH ESCOTO W B34 .9 VIRAL INFECTION, UNSPECIFIED 04/15/2020 ROXANNE CHIEF OPERATOR HYDROFORMER, LAITH W E86 .0 DEHYDRATION 04/15/2020 ROXANNE CHIEF OPERATOR HYDROFORMERLAITH W F79 UNSPECIFIED INTELLECTUAL DISABILITIES 04/15/2020 ROXANNE CHIEF OPERATOR HYDROFORMERLAITH Hughes W G40 .89 OTHER 04/15/2020 ROXANNE CHIEF OPERATOR HYDROFORMER, JOSTINY W K21 .9 GASTRO-ESOPHAGEAL REFLUX DISEASE WITHOUT ESOPHAGITIS 04/15/2020 ROXANNE CHIEF OPERATOR HYDROFORMER, LAITH W M25.561 PAIN IN RIGHT KNEE 04/15/2020 ROXANNE CHIEF OPERATOR HYDROFORMERLAITH W R07 .9 CHEST PAIN, UNSPECIFIED 04/15/2020 ROXANNE CHIEF OPERATOR HYDROFORMER, JOSTINY W R19 .7 DIARRHEA, UNSPECIFIED 04/15/2020 ROXANNE CHIEF OPERATOR HYDROFORMER, JOSTINY W R22 .40 LOCALIZED SWELLING, MASS AND LUMP, UNSPECIFIED LOWER LIMB 04/15/2020 ROXANNE CHIEF OPERATOR HYDROFORMERLAITH W R55 SYNCOPE AND COLLAPSE 04/15/2020 ROXANNE CHIEF OPERATOR HYDROFORMER, JOSTINY W R56 .9 UNSPECIFIED CONVULSIONS 04/15/2020 ROXANNE CHIEF OPERATOR HYDROFORMER, LAITH W R94 .4 ABNORMAL RESULTS OF KIDNEY FUNCTION STUDIES 04/15/2020 LAITH OLIVEIRA APRN W T63.461A TOXIC EFFECT OF VENOM OF WASPS, ACCIDENTAL, INIT 04/15/2020 LAITH OLIVEIRA APRN Z01.411 ENCNTR FOR ICING AND GLAZE MAKER EXAM (GENERAL) (ROUTINE) W ABNORMAL FIN DINGS 04/15/2020 LAITH OLIVEIRA APRN Z12 .39 ENCOUNTER FOR OTH SCREENING FOR MALIGNANT NEOPLASM OF BREAST 04/27/2020 Helga Hogan K21.9 GASTRO- ESOPHAGEAL REFLUX DISEASE WITHOUT ESOPHAGITIS 04/27/2020 SamiraHelga R56.9 UNSPECIFIED CONVULSIONS 04/27/2020 Helga Hogan Z00.00 ENCNTR FOR GENERAL ADULT MEDICAL EXAM W/O ABNORMAL FINDINGS 04/27/2020 Helga Hogan F79 UNSPECIFIED INTELLECTUAL DISABILITIES 04/27/2020 Helga Hogan K21.9 GASTRO- ESOPHAGEAL REFLUX DISEASE WITHOUT ESOPHAGITIS 04/27/2020 Samira, Helga Nieves R56.9 UNSPECIFIED CONVULSIONS 04/27/2020 Helga Hogan Z00.00 ENCNTR FOR GENERAL ADULT MEDICAL EXAM W/O ABNORMAL FINDINGS Procedures There is no data. Results Test [...] Negative Urine-Blood Negative Negative Urine-Color Yellow Colorless-[place] ow Urine-Epithelial Cells 5-10/HPF Urine-Glucose Negative Negative Urine-Ketones Negative Negative Urine-Leukocytes Negative Negative Urine-Nitrite Negative Negative Urine-Other Urine Saved if Culture Need ed (48hrs from time of collection) Urine-pH 6.0 5-8.5 Urine-Protein Negative Negative Urine-RBC 0-2/HPF Urine-Specific [place] <=1.005 1.000-1 .030 Urine-WBC 2-5/HPF Urobilinogen 0.2 [...] Negative Urine-Blood Trace-lysed Negative Urine-Color Yellow Colorless-[place] ow Urine-Epithelial Cells 0-5/HPF Urine-Glucose Negative Negative Urine-Ketones Negative Negative Urine-Leukocytes 1+ Negative Urine-Nitrite Negative Negative Urine-Other Culture to follow Urine-pH 5.5 5-8.5 Urine-Protein Negative Negative Urine-RBC 0-2/HPF Urine-Specific [place] 1.010 1.000-1 .030 Urine-WBC 5-10/HPF Urobilinogen 0.2 0.2-1.0 Urine Culture - 02/14/17 00:10 PRELIM CULTURE RESULTS >100,000 Gram Positiv e Mixed Samira [id number] Skin Contaminant FINAL CULTURE RESULTS No Further [...] Negative Urine-Blood Negative Negative Urine-Color Yellow Colorless-[place] Urine-Glucose Negative Negative Urine-Ketones Negative Negative Urine-Leukocytes Negative Negative Urine-Nitrite Negative Negative Urine-Other Urine Saved if Culture Need ed (48hrs from time of collection) Urine-pH 7.0 5-8.5 Urine-Protein Negative Negative Urine-RBC Negative Urine-Specific [place] 1.010 1.000-1 .030 Urine-WBC Rare/HPF Urobilinogen 0.2 [...] Urine-pH 7.0 5-8.5 Urine-Protein Negative Negative Urine-Specific [place] 1.015 1.000-1 .030 Urobilinogen 0.2 E.U./dL 0.2-1.0 Urine Culture - 07/02/17 16:20 PRELIM CULTURE RESULTS <10,000 Gram Positive Mixed Samira [id number] Skin Contaminant FINAL CULTURE RESULTS 10,000-20,000 Gram Pos itive Mixed Samira [id number] Skin Contaminant [id number] Further Workup done MEDIA PLATED Setup at 14:25 on 07/03/2017 CULTURE SOURCE [id number] Thyroid Stimulating Hormone - 09/21/17 1 3:47 [...] NEGATIVE FOR A and B 0.00-0.0 0 COVID-19 ([facility]) - 03/23/20 11:31 Complete blood count (CBC) with automate d [...] i.cardiac measurement (mass/v olume) < ng/mL <0.028 Serum or plasma C reactive protein measu rement (mass/volume) - 04/06/20 10:50 Serum or plasma C reactive protein measurement (mass/v olume) 0.10 mg/dL 0.00-0.50 Lipase - 04/06/20 10:50 Lipase 111 U/L 8-78 Serum or plasma C reactive protein measu rement (mass/volume) - 04/06/20 10:50 Serum or plasma C reactive protein measurement (mass/v olume) 0.10 mg/dL 0.00-0.50 Serum or plasma troponin i.cardiac measu rement (mass/volume) - 04/06/20 12:48 Serum or plasma troponin i.cardiac measurement (mass/v olume) < ng/mL <0.028 CK-MB - 04/15/20 19:55 CK-MB 2.7 ng/ml 0.0-9.2 Troponin I - 04/15/20 19:55 Troponin <0.020 ng/mL 0.0-0.4 Valproic Acid - 04/27/20 09:15 Valproic Acid 35.0 ug/mL 55.0-105.0 Encounters ACCT No. Visit Date/Time Discharge Status Pt. Type Provider Facility Loc./Unit Complaint [id number] 10/03/2018 18:09:00 Document Registration [id number] 05/10/2020 05:33:00 020 10:34:00 DIS Outpatient SAE CUNNINGHAM MD [facility] PREOP SCREENING, REFLUX [id number] 04/06/2020 10:40:00 020 15:13:00 DIS Emergency OTTO OSUNA, PALLAVI Arellano [facility] ER SOA;CHEST PAIN [id number] 04/21/2019 18:57:00 019 20:26:00 DIS Emergency LORENZO CHAVIS APRN [facility] ER R KNEE PAIN [id number] 08/22/2013 13:58:00 013 16:53:00 DIS Emergency [id number] 05/12/2020 09:40:[address] Outpatient SAE CUNNINGHAM MD [facility] [place] ENDO SCREENING,REFLUX [id number] 03/23/2020 11:00:00 03/23/2020 23:59:5 9 CLS [facility] [id number] 03/23/2020 11:00:00 Document Registration [id number] 07/02/2017 19:10:00 Document Registration [id number] 04/27/2020 13:24:00 04/27/2020 23:59 :00 DIS Outpatient HALEIGH RODRIGUEZ [id number] 04/27/2020 10:20:00 04/27/2020 23:59 :00 DIS Outpatient Helga Hogan [id number] 04/27/2020 08:28:00 04/27/2020 23:59 :00 DIS Outpatient Helga Hogan [id number] 04/15/2020 19:25:00 04/15/2020 20:57 :00 [facility] [id number] 04/12/2020 08:53:00 04/12/2020 23:59 :00 DIS Outpatient Helga Hogan [id number] 10/21/2019 14:43:00 10/21/2019 16:25 :00 [facility] [id number] 09/23/2019 12:56:00 09/23/2019 23:59 :00 DIS Outpatient HALEIGH RODRIGUEZ [id number] 05/02/2019 10:12:00 05/02/2019 23:59: 00 DIS Outpatient DANIELA BARFIELD [id number] 05/02/2019 11:00:00 05/02/2019 11:00: 00 CAN Outpatient DANIELA BARFIELD [id number] 04/30/2019 00:00:00 04/30/2019 23:59: 00 DIS Outpatient Helga Hogan [id number] 03/20/2019 13:06:00 03/20/2019 23:59: 00 DIS Outpatient HALEIGH RODRIGUEZ [id number] 10/31/2018 08:17:00 10/31/2018 23:59: 00 DIS Outpatient Samira, Helga [id number] 09/26/2018 15:03:00 09/26/2018 23:59: 00 DIS Outpatient Samira, Helga [id number] 09/10/2018 13:21:00 09/10/2018 23:59: 00 DIS Outpatient HALEIGH RODRIGUEZ [id number] 07/16/2018 09:07:00 07/16/2018 23:59: 00 DIS Outpatient Samira, Helga [id number] 06/14/2018 14:31:00 06/14/2018 23:59: 00 DIS Outpatient Samira, Helga [id number] 04/19/2018 08:04:00 04/19/2018 23:59: 00 DIS Outpatient Samira, Helga [id number] 04/03/2018 08:09:00 04/03/2018 23:59: 00 DIS Outpatient Samira, Helga [id number] 03/26/2018 12:58:00 03/26/2018 23:59: 00 DIS Outpatient HALEIGH RODRIGUEZ [id number] 12/14/2017 09:06:00 12/14/2017 23:59: 00 DIS Outpatient Samira, Helga [id number] 09/21/2017 13:47:00 09/21/2017 23:59: 00 DIS Outpatient Samira, Helga [id number] 07/03/2017 09:52:00 07/03/2017 23:59: 00 DIS Outpatient Mohan Rutherford [id number] 07/02/2017 19:10:00 07/02/2017 23:59: 00 DIS Outpatient Mohan Rutherford [id number] 06/06/2017 10:33:00 06/08/2017 22:57: 00 DIS Outpatient Mohan Rutherford [facility] MED-[facility]G [id number] 05/23/2017 04:23:00 05/23/2017 07:34: 00 DIS Outpatient Lorenzo Chavis Ale[facility] ER [id number] 02/13/2017 22:32:00 02/13/2017 23:58: 00 DIS Outpatient Nova Norman [facility] ER [id number] 12/26/2016 09:49:00 12/26/2016 23:59: 00 DIS Outpatient Mohan Rutherford [id number] 08/30/2016 12:04:00 08/30/2016 23:59: 00 DIS Outpatient Mohan Rutherford [id number] 08/27/2016 14:11:00 08/27/2016 17:40: 00 DIS Outpatient MEDHAT MEYER [facility] [id number] 05/06/2019 08:49:49 Document Registration [id number] 04/29/2019 14:02:00 Document Registration [id number] 09/26/2018 12:59:00 Document Registration [id number] 06/14/2018 13:08:00 Document Registration [id number] 09/21/2017 10:01:00 Document Registration [id number] 09/18/2017 13:06:00 Document Registration [id number] 07/02/2017 14:33:00 Document Registration [id number] 08/27/2016 14:31:42 Document Registration
[2020-05-12 09:55] VITALS: BP 141/96
--- NOTE | 2020-05-12 09:57 | Conscious Sedation/ASA ---
Conscious Sedation Pre-Proced Time 09:45 ASA Score 2 For ASA 3 and 4: Consider anesthesia and medical clearance. Also, for patients with a history of failed moderate sedation consider anesthesia. Airway Lungs Heart ASA score ASA 1: a normal healthy patient ASA 2: a patient with a mild systemic disease (mid diabetes, controlled hypertension, obesity ASA 3: a patient with a severe systemic disease that limits activity (angina, COPD, prior Myocardial infarction) ASA 4: a patient with an incapacitating disease that is a constant threat to life (CHF, renal failure) ASA 5: a moribund patient not expected to survive 24 hrs. (ruptured aneurysm) ASA 6: a declared brain- patient whose organs are being harvested. For emergent operations, add the letter E after the classification Mallampati Classification Grade 2 Sedation Plan Analgesia, Amnesia, Plan communicated to team members, Discussed options with patient/fam, Discussed risks with patient/fam The patient is an appropriate candidate to undergo the planned procedure, sedation, and anesthesia. The patient immediately re-assessed prior to indication. SAE CUNNINGHAM MD May 12, 2020 09:57
--- NOTE | 2020-05-12 09:58 | Progress Note-Pre Operative ---
Pre-Operative Progress Note H&P Reviewed The H&P was reviewed, patient examined and no changes noted. Date Seen by Provider: May 12, 2020 Time Seen by Provider: 09:45 Date H&P Reviewed: May 12, 2020 Time H&P Reviewed: 09:45 Pre-Operative Diagnosis: GERD, screening o SAE CUNNINGHAM MD May 12, 2020 09:58
--- NOTE | 2020-05-12 09:59 | Discharge Inst-Surgical ---
D/C Lap Instructions-MARISA Follow Up Activity as tolerated High Fiber Diet 25g or more per day Avoid Alcohol, Caffeine, Spicy [place] and Acid foods. Drink 64 fluid oz or more of fluids per day. Symptoms to Report: Fever over 101 degree F, Nausea/Vomiting If any problems/questions: Contact your physician or go to Emergency Room SAE CUNNINGHAM MD May 12, 2020 09:59
[2020-05-12] MEDS ORDERED: morphine INJ 10 MG/ML 1ML (SYR OR VIAL) IVP PRN ×2 (10:00)
[2020-05-12] MEDS ORDERED: LIDOCAINE JELLY 2% 6 ML SYRINGE MM PRN (10:00)
[2020-05-12] MEDS ORDERED: HYDROcodone/APAP 5 MG/325 MG (LORTAB) TAB PO PRN (10:00)
[2020-05-12] MEDS ORDERED: LACTATED RINGERS 1,000 ML IV PRN (10:00)
[2020-05-12] MEDS ORDERED: ONDANSETRON 4 MG/2 ML (SDV) Z0FRAN IVP PRN (10:00)
[2020-05-12] MEDS ORDERED: HURRICAINE EXT TUBE (BENZOCAINE) XX PRN (10:00)
[2020-05-12] MEDS ORDERED: PROPOFOL INJECTION 50 ML IV ONE (10:37)
[2020-05-12] MEDS ORDERED: MIDAZOLAM 5 MG/5 ML (VERSED) VIAL ONE (10:38)
[2020-05-12] MEDS ORDERED: LIDOCAINE JELLY 2% 6 ML SYRINGE ONE (10:56)
[2020-05-12] MEDS ORDERED: HURRICAINE EXT TUBE (BENZOCAINE) ONE (10:56)
[2020-05-12 11:40] VITALS: BP 98/56
[2020-05-12 11:45] VITALS: BP 148/64
[2020-05-12 11:50] VITALS: BP_SYST 104; BP_SYST 128; BP_DIAS 74; BP_DIAS 90
--- NOTE | 2020-05-12 12:04 | Progress Note-Post Operative ---
Post-Operative Progess Note Surgeon (s)/Systems Program Manager (s) Surgeon SAE CUNNINGHAM MD Systems Program Manager: none Pre-Operative Diagnosis GERD, screening colo Post-Operative Diagnosis mid-esophageal isolated varice(grade 3), reflux esophagitis(stage 2), small HH(2cm), moderate gastritis. chronic stage 2 ext and int hemorrhoids. Procedure & Operative Findings Date of Procedure 05/12/20 Procedure Performed/Findings EGD with bx. colonoscopy. Anesthesia Type mac Estimated Blood Loss Estimated blood loss (mL): minimal Specimens/Packing Specimens Removed ge jxn, antrum SAE CUNNINGHAM MD May 12, 2020 12:04
[2020-05-12 12:20] VITALS: BP 134/83
--- NOTE | 2020-05-12 12:30 | NUR ---
PATIENT DROWSY, IV DC'D, UP WITH HELP TO BATHROOM WITH ASSISTANCE OF 2. FATHER AT BEDSIDE, STATES SHE TAKES LONGER TO WAKE UP THAN MOST PEOPLE AFTER SEDATION.
[2020-05-12] MEDS ORDERED: MIDAZOLAM 2 MG/2 ML (VERSED) VIAL ONE (12:55)
--- NOTE | 2020-05-12 12:55 | NUR ---
BEGAN TO GET PATIENT UP TO W/C AND SHE BECAME WEAK, ASSISTED BACK TO BED, FATHER AT BEDSIDE, PATIENT STARTED HAVING SEIZURE, DR. CUNNINGHAM NOTIFIED, ANESTHESIA HERE, VERSED ORDERED, IV STARTED AFTER SEVERAL ATTEMPTS BY ANESTHESIA AND R.N.'S WITH #22 RIGHT AC SPACE.
--- NOTE | 2020-05-12 13:05 | NUR ---
VERSED 2MG GIVEN IV STAT AT THIS TIME. O2 ON AT 3L/M PER N/C, PADDED RAILS UP X 2. DR. CUNNINGHAM HERE. Addendum: 05/12/20 at 1322 by INOCENCIO MORTENSEN RN CORRECTION, VERSED 1MG WAS GIVEN.
--- NOTE | 2020-05-12 14:00 | NUR ---
VITALS STABLE, COLOR GOOD, O2 OFF, IV DC'D, UP WITH HELP TO W/C WITH NO CHANGE, NO C/O.
[2020-05-12 14:10] VITALS: BP 134/83
[2020-05-12] MEDS ORDERED: MIDAZOLAM 2 MG/2 ML (VERSED) VIAL IVP ONE (14:30)
--- NOTE | 2020-05-12 16:19 | OPERATIVE REPORT ---
DATE OF SERVICE: 05/12/2020 ATTENDING PRIMARY CARE PHYSICIAN: Jovana Hogan APRN. PREOPERATIVE DIAGNOSES: Gastroesophageal reflux disease, reflux esophagitis stage II, small hiatal hernia approximately 2 cm in size, moderate gastritis and chronic stage II external and internal hemorrhoids. POSTOPERATIVE DIAGNOSES: Gastroesophageal reflux disease, reflux esophagitis stage II, small hiatal hernia approximately 2 cm in size, moderate gastritis and chronic stage II external and internal hemorrhoids. Midesophageal isolated esophageal varices. PROCEDURES PERFORMED: EGD with biopsy and colonoscopy. SURGEON: Sae Cunningham MD. ANESTHESIA: Monitored anesthesia care. ESTIMATED BLOOD LOSS: Minimal. FINDINGS: Same as postoperative diagnoses. DISPOSITION: The patient tolerated the procedure well. INDICATIONS FOR PROCEDURE: The patient is a 60-year-old female referred over to us for worsening gastroesophageal reflux disease as well as a screening colonoscopy. She states that she has had epigastric burning sensation as well as crampy pain for several years; however, in the past year, this has worsened. She does not report any hematemesis and no coffee ground emesis. She has also in need of a screening colonoscopy for she has not had one up to this point in her life. She does not report any major issues with diarrhea nor constipation as well as no red blood per rectum nor any dark tarry stools. She also does not report any family history of colon cancer. DESCRIPTION OF PROCEDURE: The patient was brought to the endoscopy suite and laid in the left lateral decubitus position with the head slightly elevated. After adequate IV pain and sedative medications and monitored anesthesia care, the mouthpiece was applied. The endoscope was placed in the mouth, visualizing the pharynx and hypopharyngeal region. Vocal cords, epiglottis and vallecula identified and appeared to be normal. The endoscope was then gently intubated with the esophageal opening and esophagus insufflated. The endoscope was then advanced to the first and second portions of the esophagus at the mid esophagus and isolated stage III esophageal varices was identified. This was of unknown etiology. No signs of any active or chronic bleeding. The endoscope was then advanced to the GE junction, a reflux esophagitis stage II identified. There were no ulcers or strictures identified in this region. A biopsy was taken with forceps with visualization of good hemostasis. The endoscope was then advanced into the stomach and endoscope retroflexed, visualizing a small hiatal hernia approximately 2 cm in size. There was a moderate gastritis. No formal ulcerations, polyps or any neoplasms. A biopsy was taken of the antrum to rule out H. pylori with visualization of good hemostasis. The endoscope was then advanced to the pylorus and the first and second portion of the duodenum, which appeared normal with no distal obstructions. The endoscope was then slowly withdrawn while taking a second look and suctioning of residual air with no additional findings. Under the same anesthesia, we then proceeded with the colonoscopy portion of procedure. A digital rectal examination was performed, which revealed chronic stage II external and internal hemorrhoids, not actively edematous or inflamed and no bleeding. Normal sphincter tone was felt and there were no palpable masses. The endoscope was then intubated and anus and rectum gently insufflated. The endoscope was then advanced to the valves of [place] of the rectum with no polyps or any neoplasms identified. Through the sigmoid colon, no diverticulosis identified. The endoscope was then advanced and remainder of the descending, transverse and ascending colon to the cecum. These segments were normal. There were no polyps or any neoplasms identified. The endoscope was slowly withdrawn while taking a second look and suctioning of residual air with no additional findings. The patient tolerated the procedure well. We will recommend the necessary lifestyle and diet accommodation including small and more frequent meals, avoidance of eating at night as well as head elevation while lying supine. She also needs to avoid caffeinated beverages, spicy, greasy and acidic foods. We will also switch her over to Protonix 40 mg daily. We will also at some point refer her to gastroenterology to evaluate the esophageal varices and possible banding. We will also recommend a high fiber diet with at least 25 grams of fiber a day as well as significant amounts of water to promote soft stools on a daily basis. She does not need another colonoscopy for another 10 years; however, sooner if she becomes symptomatic. Job ID: [id number] DocumentID: [id number] Dictated Date: 05/12/2020 11:48:46 Tablet Technician Date: 05/12/2020 16:18:52 Dictated By: SAE CUNNINGHAM MD
--- NOTE | 2020-05-17 07:10 | Anesthesia-General Post-Op ---
MAC Significant Intra-Op Events Notes postop addendum for 05/12/20 Patient Condition Mental Status/LOC: Same as Preop Cardiovascular: Satisfactory Nausea/Vomiting: Absent Respiratory: Satisfactory Pain: Controlled Complications: Absent Post Op Complications Complications None Follow Up Care/Instructions Patient Instructions None needed. Anesthesiology Discharge Order Discharge Order Patient is doing well, no complaints, stable vital signs, no apparent adverse anesthesia problems. No complications reported per nursing. REECE LISA MUFFLER TENDER May 17, 2020 07:10
== END 2020-05-12 14:10 | disposition home or self-care (01) ==
LOC: ENDO 09:40
PROVIDERS: ATTEND Surgery
DX: Z12.11 Encounter for screening for malignant neoplasm of colon (principal); K21.0 Gastro-esophageal reflux disease with esophagitis; K44.9 Diaphragmatic hernia without obstruction or gangrene; K64.1 Second degree hemorrhoids; K29.70 Gastritis, unspecified, without bleeding; K21.9 Gastro-esophageal reflux disease without esophagitis; Z79.899 Other long term (current) drug therapy; Z88.0 Allergy status to penicillin; Z88.5 Allergy status to narcotic agent; Z88.8 Allergy status to other drugs, medicaments and biological substances; Z83.3 Family history of diabetes mellitus; Z80.3 Family history of malignant neoplasm of breast; Z82.49 Family history of ischemic heart disease and other diseases of the circulatory system
CPT/HCPCS: 43239; G0121

== ENCOUNTER 2020-05-12 19:17 | Emergency (ER) | payer MEDICARE, MEDICAID ==
[~2020-05-12] VITALS: Ht 175 cm; Wt 81.6 kg
--- OUTSIDE RECORDS SUMMARY | 2020-05-12 19:22 | XMS REPORT | Continuity of Care Document ---
Demographics Preferred Language Unknown Marital Status Unknown Evangelical Affiliation Unknown Race Unknown Ethnic Group Unknown [...] KRYSTAL Yes PENICILLINS MODERATE MODERATE Yes codeine [id number] Drug Allergy Unknown N/A 12/09/2007 Yes codeine [id number] Drug Allergy Severe CONFUSION 05/07/2020 Yes Penicillins [id number] Drug Aller gy Severe CONFUSION 05/07/2020 Medications [...] 10/31/2018 SamiraHelga W 530.81 ESOPHAGEAL REFLUX 10/31/2018 SamiraHlega W 780.39 OTHER CONVULSIONS 10/31/2018 SamiraHelga W [...] MALIGNANT NEOPLASM OF BREAST 04/21/2019 LORENZO CHAVIS SHIPPING ASSISTANT Ot M23.91 UNSPECIFIED INTERNAL DERANGEMENT OF RIGH 04/21/2019 LORENZO CHAVIS SHIPPING ASSISTANT Ot M25.561 PAIN IN RIGHT KNEE 04/21/2019 LORENZO CHAVIS SHIPPING ASSISTANT Ot X50.1XXA OVEREXERTION FROM PROLONGED STATIC OR AW 04/21/2019 LORENZO CHAVIS APRN Ot Z88 .5 ALLERGY STATUS TO NARCOTIC AGENT STATUS 04/28/2019 LORENZO CHAVIS APRN Ot M23.91 UNSPECIFIED INTERNAL DERANGEMENT OF RIGH 04/28/2019 LORENZO CHAVIS APRN Ot M25.561 PAIN IN RIGHT KNEE 04/28/2019 LORENZO CHAVIS APRN Ot X50.1XXA OVEREXERTION FROM PROLONGED STATIC OR AW 04/28/2019 LORENZO CHAVIS SHIPPING ASSISTANT Ot Z88 .5 ALLERGY STATUS TO NARCOTIC [...] INIT 06/18/2019 W Z01.411 EN CNTR FOR SCHOOL NURSE EXAM (GENERAL) (ROUTINE) W ABNORMAL FINDINGS 06/18/2019 [...] INIT 10/21/2019 Reese Richardson Z01.411 ENCNTR FOR SCHOOL NURSE EXAM (GENERAL) (ROUTINE) W ABNORMAL FINDINGS 10/21/2019 [...] B34 .9 VIRAL INFECTION, UNSPECIFIED 04/15/2020 ROXANNE SHIPPING ASSISTANT, LAITH W E86 .0 DEHYDRATION 04/15/2020 ROXANNE SHIPPING ASSISTANTLAITH W F79 UNSPECIFIED INTELLECTUAL DISABILITIES 04/15/2020 ROXANNE SHIPPING ASSISTANTLAITH Hughes W G40 .89 OTHER 04/15/2020 ROXANNE SHIPPING ASSISTANT, JOSTINY W K21 .9 GASTRO-ESOPHAGEAL REFLUX DISEASE WITHOUT ESOPHAGITIS 04/15/2020 ROXANNE SHIPPING ASSISTANT, LAITH W M25.561 PAIN IN RIGHT KNEE 04/15/2020 ROXANNE SHIPPING ASSISTANTLAITH W R07 .9 CHEST PAIN, UNSPECIFIED 04/15/2020 ROXANNE SHIPPING ASSISTANT, JOSTINY W R19 .7 DIARRHEA, UNSPECIFIED 04/15/2020 ROXANNE SHIPPING ASSISTANT, JOSTINY W R22 .40 LOCALIZED SWELLING, MASS AND LUMP, UNSPECIFIED LOWER LIMB 04/15/2020 ROXANNE SHIPPING ASSISTANTLAITH W R55 SYNCOPE AND COLLAPSE 04/15/2020 ROXANNE SHIPPING ASSISTANT, JOSTINY W R56 .9 UNSPECIFIED CONVULSIONS 04/15/2020 ROXANNE SHIPPING ASSISTANT, LAITH W R94 .4 ABNORMAL RESULTS OF KIDNEY FUNCTION STUDIES 04/15/2020 LAITH OLIVEIRA APRN W T63.461A TOXIC EFFECT OF VENOM OF WASPS, ACCIDENTAL, INIT 04/15/2020 LAITH OLIVEIRA APRN Z01.411 ENCNTR FOR SCHOOL NURSE EXAM (GENERAL) (ROUTINE) W ABNORMAL FIN DINGS [...] Negative Urine-Blood Negative Negative Urine-Color Yellow Colorless-[place] ow Urine-Epithelial Cells 5-10/HPF Urine-Glucose Negative Negative Urine-Ketones Negative Negative Urine-Leukocytes Negative Negative Urine-Nitrite Negative Negative Urine-Other Urine Saved if Culture Need ed (48hrs from time of collection) Urine-pH 6.0 5-8.5 Urine-Protein Negative Negative Urine-RBC 0-2/HPF Urine-Specific [place] <=1.005 1.000-1 .030 Urine-WBC 2-5/HPF Urobilinogen 0.2 [...] Negative Urine-Blood Trace-lysed Negative Urine-Color Yellow Colorless-[place] ow Urine-Epithelial Cells 0-5/HPF Urine-Glucose Negative Negative Urine-Ketones Negative Negative Urine-Leukocytes 1+ Negative Urine-Nitrite Negative Negative Urine-Other Culture to follow Urine-pH 5.5 5-8.5 Urine-Protein Negative Negative Urine-RBC 0-2/HPF Urine-Specific [place] 1.010 1.000-1 .030 Urine-WBC 5-10/HPF Urobilinogen 0.2 0.2-1.0 Urine Culture - 02/14/17 00:10 PRELIM CULTURE RESULTS >100,000 Gram Positiv e Mixed Samria [id number] Skin Contaminant FINAL CULTURE RESULTS No Further [...] Negative Urine-Blood Negative Negative Urine-Color Yellow Colorless-[place] ow Urine-Glucose Negative Negative Urine-Ketones Negative Negative Urine-Leukocytes Negative Negative Urine-Nitrite Negative Negative Urine-Other Urine Saved if Culture Need ed (48hrs from time of collection) Urine-pH 7.0 5-8.5 Urine-Protein Negative Negative Urine-RBC Negative Urine-Specific [place] 1.010 1.000-1 .030 Urine-WBC Rare/HPF Urobilinogen 0.2 [...] Urine-pH 7.0 5-8.5 Urine-Protein Negative Negative Urine-Specific [place] 1.015 1.000-1 .030 Urobilinogen 0.2 E.U./dL 0.2-1.0 Urine Culture - 07/02/17 16:20 PRELIM CULTURE RESULTS <10,000 Gram Positive Mixed Samira [id number] Skin Contaminant FINAL CULTURE RESULTS 10,000-20,000 Gram Pos itive Mixed Samira [id number] Skin Contaminant [id number] Further Workup done MEDIA PLATED Setup at 14:25 on 07/03/2017 CULTURE SOURCE [id number]\ Thyroid Stimulating Hormone - 09/21/17 1 3:47 [...] 04/27/20 09:15 Valproic Acid 35.0 ug/mL 55.0-105.0 Coronavirus SARS-CoV-2 SO 2018 - 0 07:55 Coronavirus Ab [Units/volume] in Serum NOT DETECTE D Not Detecte Encounters ACCT No. Visit Date/Time Discharge Status Pt. Type Provider Facility Loc./Unit Complaint [id number] 10/03/2018 18:09:00 Document Registration [id number] 05/12/2020 09:40:00 020 14:10:00 DIS Outpatient SAE CUNNINGHAM MD [facility] ENDO SCREENING,REFLUX [id number] 05/10/2020 05:33:00 020 10:34:00 DIS Outpatient SAE CUNNNIGHAM MD [facility] PREOP SCREENING, REFLUX [id number] 04/06/2020 10:40:00 020 15:13:00 DIS Emergency OTTO OSUNA, PALLAVI Arellano [facility] ER SOA;CHEST PAIN [id number] 04/21/2019 18:57:00 019 20:26:00 DIS Emergency LORENZO CHAVIS APRN [facility] ER R KNEE PAIN [id number] 08/22/2013 13:58:00 013 16:53:00 DIS Emergency [id number] 05/12/2020 19:18:[address] Emergency DAVID OSUNA, COSME Crowder [facility] ER TROUBLE W EYES S/P COLON AND EGD [id number] 03/23/2020 11:00:00 03/23/2020 23:59:[address] [facility] [id number] 03/23/2020 11:00:00 Document Registration [id number] 07/02/2017 19:10:00 Document Registration [id number] 04/27/2020 13:24:00 04/27/2020 23:59 :00 DIS Outpatient HALEIGH RODRIGUEZ [id number] 04/27/2020 10:20:00 04/27/2020 23:59 :00 DIS Outpatient Helga Hogan [id number] 04/27/2020 08:28:00 04/27/2020 23:59 :00 DIS Outpatient Helga Hogan [id number] 04/15/2020 19:25:00 04/15/2020 20:57 :00 DIS Outpatient ROXANNE ESCOTO [facility] April [facility] ER [id number] 04/12/2020 08:53:00 04/12/2020 23:59 :00 DIS Outpatient Helga Hogan [id number] 10/21/2019 14:43:00 10/21/2019 16:25 :00 DIS Outpatient Dylan [facility] ER [id number] 09/23/2019 12:56:00 09/23/2019 23:59 :00 DIS Outpatient HALEIGH RODRIGUEZ [id number] 05/02/2019 10:12:00 05/02/2019 23:59: 00 DIS Outpatient DANIELA BARFIELD [id number] 05/02/2019 11:00:00 05/02/2019 11:00: 00 CAN Outpatient CAROLYNEDANIELA [id number] 04/30/2019 00:00:00 04/30/2019 23:59: 00 DIS Outpatient Samira, Helga [id number] 03/20/2019 13:06:00 03/20/2019 23:59: 00 DIS Outpatient DENNY RODRIGUEZNON [id number] 10/31/2018 08:17:00 10/31/2018 23:59: 00 DIS Outpatient Samira, Helga [id number] 09/26/2018 15:03:00 09/26/2018 23:59: 00 DIS Outpatient Samira, Helga [id number] 09/10/2018 13:21:00 09/10/2018 23:59: 00 DIS Outpatient MICHAELDENNYHLAEIGH [id number] 07/16/2018 09:07:00 07/16/2018 23:59: 00 DIS Outpatient Samira, Helga [id number] 06/14/2018 14:31:00 06/14/2018 23:59: 00 DIS Outpatient Samira, Helga [id number] 04/19/2018 08:04:00 04/19/2018 23:59: 00 DIS Outpatient Samira, Helga [id number] 04/03/2018 08:09:00 04/03/2018 23:59: 00 DIS Outpatient Samira, Helga [id number] 03/26/2018 12:58:00 03/26/2018 23:59: 00 DIS Outpatient DENNY RODRIGUEZNON [id number] 12/14/2017 09:06:00 12/14/2017 23:59: 00 DIS Outpatient Samira, Helga [id number] 09/21/2017 13:47:00 09/21/2017 23:59: 00 DIS Outpatient Samira, Helga [id number] 07/03/2017 09:52:00 07/03/2017 23:59: 00 DIS Outpatient Mohan Rutherford [id number] 07/02/2017 19:10:00 07/02/2017 23:59: 00 DIS Outpatient Mohan Rutherford [id number] 06/06/2017 10:33:00 06/08/2017 22:57: 00 DIS Outpatient Krish [facility] MED-SURG [id number] 05/23/2017 04:23:00 05/23/2017 07:34: 00 DIS Outpatient Lorenzo Chaivs [facility] enter ER [id number] 02/13/2017 22:32:00 02/13/2017 23:58: 00 DIS Outpatient Nova Norman [facility] ER [id number] 12/26/2016 09:49:00 12/26/2016 23:59: 00 DIS Outpatient Mohan Rutherford [id number] 08/30/2016 12:04:00 08/30/2016 23:59: 00 DIS Outpatient Mohan Rutherford [id number] 08/27/2016 14:11:00 08/27/2016 17:40: 00 DIS Outpatient MEDHAT MEYER [facility] ER [id number] 05/06/2019 08:49:49 Document Registration [id number] 04/29/2019 14:02:00 Document Registration [id number] 09/26/2018 12:59:00 Document Registration [id number] 06/14/2018 13:08:00 Document Registration [id number] 09/21/2017 10:01:00 Document Registration [id number] 09/18/2017 13:06:00 Document Registration [id number] 07/02/2017 14:33:00 Document Registration [id number] 08/27/2016 14:31:42 Document Registration
[2020-05-12] MEDS ORDERED: KETOROLAC 30 MG/ML VIAL IVP STA (19:57)
[2020-05-12] MEDS ORDERED: LACTATED RINGERS 1,000 ML IV ONE (19:57)
--- NOTE | 2020-05-12 20:12 | ED EENT ---
History of Present Illness General Stated Complaint: TROUBLE W EYES S/P COLON AND EGD Source: patient Exam Limitations: no limitations ([facility]IOS [facility]) History of Present Illness Date Seen by Provider: May 12, 2020 Time Seen by Provider: 19:31 Initial Comments This is a 60 y.o F who presents to the ED with bilateral eye pain, photophobia, double/blurry vision onset after an episode of seizure this AM while she was in post-op s/p an EGD and colonoscopy. Pt has hx of generalized seizures since she was in her 40s and takes Valproic acid 250mg/5ml gissel q12hrs. She says after she was d/c from post-op she felt like her "eyes weren't right" and after a while she started seeing "flashing lights" and her eyes started hurting. Also complains of dull TALAVERA behind her eyes rating it as a 5/10. She has no hx of DM, cardiovascular, autoimmune, recent falls/ocular trauma, eye surgery/Lasik, recent dilated eye exam, or stroke. pt denies dizziness, trouble walking, and states her speech is a baseline. Denies any other complaints at this time. Timing/Duration: abrupt, this morning Location: eye (R), eye (L) Prearrival Treatment: no prearrival treatment Modifying Factors: Improves With Other (better with keeping eyes closed, dark room) Associated Symptoms: No change in hearing, No ear drainage, No facial pain/swelling, No nasal congestion/drainage; other (bilaterall TALAVERA, photophobia, blurry vision, double vision) ([facility]) Initial Comments Here with report of bilateral eye pain. Complicated history today is she had upper and lower endoscopy and had seizure afterwards. It is not common for her to have seizures and her last seizure was yesterday. States that after going home she felt pain in her eyes. Denies recent injury or illness. (COSME HERNANDEZ MD) Allergies and Home Medications Allergies Coded Allergies: Penicillins (Verified Allergy, Severe, CONFUSION, 05/07/20) codeine (Verified Allergy, Severe, CONFUSION, 05/07/20) Home Medications Folic Acid 0.8 Mg Capsule, 0.8 MG PO DAILY, (Reported) Omeprazole 20 Mg Capsule.dr, 20 MG PO DAILY, (Reported) Patient Home Medication List Home Medication List Reviewed: Yes (COSME HERNANDEZ MD) Review of Systems Review of Systems Constitutional: no symptoms reported Eyes: Blurred Vision; Denies Drainage; Decreased Acuity; Denies Foreign Body Sensation; Pain, Photophobia; Denies Previous Injury; Vision Changes, Glasses (reading glasses) Ears: No Symptoms Reported Respiratory: no symptoms reported Cardiovascular: no symptoms reported Neurological: Headache; Denies Numbness, Denies Paresthesia; Pre-Existing Deficit (speech impediment ), Seizure; Denies Tingling, Denies Tremors, Denies Weakness (SHAYE LARIOS) Constitutional: no symptoms reported Eyes: Pain, Photophobia Nose: no symptoms reported Mouth: no symptoms reported Throat: no symptoms reported (COSME HERNANDEZ MD) Past Xyqpdmo-Spioqv-Kpzdtq Hx Past Med/Social Hx: Reviewed Nursing Past Med/Soc Hx (COSME HERNANDEZ MD) Patient Social History 2nd Hand Smoke Exposure: No Recent Hopitalizations: No ([facility]E LARIOS [facility]) Seasonal Allergies Seasonal Allergies: Yes (SHAYE LARIOS [facility]) Past Medical History Surgeries: Yes (KNEE SCOPE, WISDOM TEETH) Appendectomy, Orthopedic Respiratory: No Cardiac: No Neurological: Yes (MR, LAST SEIZURE 03/27) Seizure Disorder 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 Sexually Transmitted Disease: No HIV/AIDS: No Genitourinary: No Gastrointestinal: Yes (CILLIAC DISEASE) Gastroesophageal Reflux Musculoskeletal: No Endocrine: No HEENT: Yes (READING GLASSES, DENTURES) Loss of Vision: Denies Hearing Impairment: Denies Cancer: No Psychosocial: No Integumentary: No Blood Disorders: No Adverse Reaction/Blood Tranf: No (N/A) ([facility] LARIOS [facility]) Family Medical History Reviewed Nursing Family Hx (COSME HERNANDEZ MD) Visual Acuity : Eye Location: Bilaterally ([facility] LARIOS [facility]) Physical Exam Vital Signs Vital Signs - First Documented 05/12/20 19:37 Temp 36.9 Pulse 97 Resp 18 B/P (MAP) 117/98 (104) Pulse Ox 99 O2 Delivery Room Air (COSME HERNANDEZ MD) Height, Weight, BMI Height: 5'6" Weight: 170lbs. oz. 77.492307io; 28.68 BMI Method:Stated General Appearance: no apparent distress Eyes: bilateral eye PERRL, bilateral eye EOMI, bilateral eye other (conjuctival erythema ) Cardiovascular: regular rate, rhythm, no edema, no gallop, no JVD, no murmur Respiratory: chest non-tender, lungs clear, normal breath sounds Neurologic/Psychiatric: supervisor mirror fabrication II-XII nml as tested, no motor/sensory deficits, alert, normal mood/affect, oriented x 3; No abnormal cerebellar tests, No EOM palsy, No facial droop, No motor weakness, No sensory deficit Skin: normal color, warm/dry ([facility]) General Appearance: WD/WN, no apparent distress Eyes: bilateral eye other (conjuctival erythema bilateral and pain with opening her eyes) Cardiovascular: regular rate, rhythm, no murmur Respiratory: lungs clear, normal breath sounds Neurologic/Psychiatric: alert, normal mood/affect Skin: normal color, warm/dry (COSME HERNANDEZ MD) Progress/Results/Core Measures Results/Orders Lab Results Laboratory Tests Test 05/12/20 20:20 Range/Units White Blood Count 7.0 4.3-11.0 10^3/uL Red Blood Count 4.97 4.35-5.85 10^6/uL Hemoglobin 15.6 11.5-16.0 G/DL Hematocrit 45 35-52 % Mean Corpuscular Volume 91 80-99 FL Mean Corpuscular Hemoglobin 31 25-34 PG Mean Corpuscular Hemoglobin Concent 34 32-36 G/DL Red Cell Distribution Width 12.7 10.0-14.5 % Platelet Count 181 130-400 10^3/uL Mean Platelet Volume 11.2 H 7.4-10.4 FL Neutrophils (%) (Auto) 62 42-75 % Lymphocytes (%) (Auto) 26 12-44 % Monocytes (%) (Auto) 11 0-12 % Eosinophils (%) (Auto) 1 0-10 % Basophils (%) (Auto) 0 0-10 % Neutrophils # (Auto) 4.3 1.8-7.8 X 10^3 Lymphocytes # (Auto) 1.8 1.0-4.0 X 10^3 Monocytes # (Auto) 0.8 0.0-1.0 X 10^3 Eosinophils # (Auto) 0.1 0.0-0.3 10^3/uL Basophils # (Auto) 0.0 0.0-0.1 10^3/uL Sodium Level 141 135-145 MMOL/L Potassium Level 3.6 3.6-5.0 MMOL/L Chloride Level 104 98-107 MMOL/L Carbon Dioxide Level 26 21-32 MMOL/L Anion Gap 11 5-14 MMOL/L Blood Urea Nitrogen 4 L 7-18 MG/DL Creatinine 1.18 0.60-1.30 MG/DL Estimat Glomerular Filtration Rate 47 BUN/Creatinine Ratio 3 Glucose Level 98 70-105 MG/DL Calcium Level 9.5 8.5-10.1 MG/DL Corrected Calcium 9.5 8.5-10.1 MG/DL Total Bilirubin 0.5 0.1-1.0 MG/DL Aspartate Amino Transf (AST/SGOT) 150 H 5-34 U/L Alanine Aminotransferase (ALT/SGPT) 209 H 0-55 U/L Alkaline Phosphatase 61 40-136 U/L Total Protein 6.5 6.4-8.2 GM/DL Albumin 4.0 3.2-4.5 GM/DL (COSME HERNANDEZ MD) My Orders Orders - COSME HERNANDEZ MD Cbc With Automated Diff (05/12/20 19:57) Comprehensive Metabolic Panel (05/12/20 19:57) Ed Iv/Invasive Line Start (05/12/20 19:57) Lactated Ringers (Lr 1000 Ml Iv Solution (05/12/20 19:57) Ketorolac Injection (Toradol Injection) (05/12/20 19:57) Tetracaine 0.5% Ophth Gissel Sdv (Tetracai (05/12/20 20:15) Fluorescein Strips (Rgott-F-Dyigql) (05/12/20 20:15) (COSME HERNANDEZ MD) Medications Given in ED Current Medications Medications Dose Ordered Sig/Kathy Route Start Time Stop Time Status Last Admin Dose Admin Fluorescein Sodium 2 mg ONCE ONCE OU 05/12/20 20:15 05/12/20 20:16 DC 05/12/20 21:00 2 MG Lactated Ringer's 1,000 ml @ 0 mls/hr Q0M ONCE IV 8/5/20 19:57 05/12/20 19:59 DC 05/12/20 20:20 0 MLS/HR Tetracaine HCl 4 ml ONCE ONCE OU 05/12/20 20:15 05/12/20 20:16 DC 05/12/20 21:00 4 ML (COSME HERNANDEZ MD) Vital Signs/I&O 05/12/20 19:37 Temp 36.9 Pulse 97 Resp 18 B/P (MAP) 117/98 (104) Pulse Ox 99 O2 Delivery Room Air (COSME HERNANDEZ MD) Progress Progress Note : Progress Note I have seen and evaluated the patient and agree with above except as indicated. I have directed the plan of care. Patient is here with bilateral eye pain. We will get labs and give Toradol 30 mg IV as well as some IV fluids given her recent colonoscopy and upper endoscopy. Tetracaine 2 drops bilateral given and that completely resolved her pain. staining done and shows no uptake. Labs reviewed and showed no significant abnormalities. She is better after Toradol as well. At this point I believe this is allergic or contact conjunctivitis and she is doing better now. Discharged home with return precautions. Patient verbalize understanding instructions and agreement with plan. (COSME EHRNANDEZ MD) Departure Impression Primary Impression: Conjunctivitis, allergic Qualified Codes: H10.13 - Acute atopic conjunctivitis, bilateral Disposition: 01 HOME, SELF-CARE Condition: Improved Departure-Patient Inst. Decision time for Depature: 21:24 (COSME HERNANDEZ MD) Referrals: NO,LOCAL PHYSICIAN (PCP) Primary Care Physician SHELLIE ROY (Family) Primary Care Physician Patient Instructions: Conjunctivitis (Noninfectious Pinkeye) (DC) Add. Discharge Instructions: Your eyes may be irritated due to allergens or due to drying after the procedure today. You may keep eyes moist with topical artificial tear solution per package directions. Follow up with your eye doctor in a few days for recheck. You may take Tylenol or ibuprofen as needed per package directions for pain. Return for worse pain, fever, vision or balance problems, weakness or other concerns as needed. SHAYE LARIOS [facility] May 12, 2020 20:12 COSME HERNANDEZ MD May 12, 2020 21:08
[2020-05-12] MEDS ORDERED: FLUORESCEIN (FLUOR-I-STRIPS) 1 MG STRP OU ONE (20:15)
[2020-05-12] MEDS ORDERED: TETRACAINE 0.5% OPHTH SOLN 4 ML BTL (SINGLE DOSE ONLY) OU ONE (20:15)
[2020-05-12 20:26] LABS: BASOPHILS % (AUTO) 0 % (0-10); EOSINOPHILS # (AUTO) 0.1 10^3/uL (0.0-0.3); EOSINOPHILS % (AUTO) 1 % (0-10); HEMATOCRIT 45 % (35-52); HEMOGLOBIN 15.6 G/DL (11.5-16.0); LYMPHOCYTES # (AUTO) 1.8 X 10^3 (1.0-4.0); LYMPHOCYTES % (AUTO) 26 % (12-44); MEAN CORPUSCULAR HEMOGLOBIN 31 PG (25-34); MEAN CORPUSCULAR HGB CONC 34 G/DL (32-36); MEAN CORPUSCULAR VOLUME 91 FL (80-99); MEAN PLATELET VOLUME 11.2 FL (7.4-10.4); MONOCYTES # (AUTO) 0.8 X 10^3 (0.0-1.0); MONOCYTES % (AUTO) 11 % (0-12); NEUTROPHILS # (AUTO) 4.3 X 10^3 (1.8-7.8); NEUTROPHILS % (AUTO) 62 % (42-75); PLATELET COUNT 181 10^3/uL (130-400); RED CELL DISTRIBUTION WIDTH 12.7 % (10.0-14.5)
[2020-05-12 20:56] LABS: BILIRUBIN,TOTAL 0.5 MG/DL (0.1-1.0); CALCIUM 9.5 MG/DL (8.5-10.1); CREATININE SERUM 1.18 MG/DL (0.60-1.30); POTASSIUM 3.6 MMOL/L (3.6-5.0); TOTAL PROTEIN 6.5 GM/DL (6.4-8.2)
[2020-05-12 21:33] VITALS: BP 108/66
== END 2020-05-12 21:35 | disposition home or self-care (01) ==
LOC: EDUNIT# 19:17 → ER 19:18
DX: H10.13 Acute atopic conjunctivitis, bilateral (principal); G40.909 Epilepsy, unspecified, not intractable, without status epilepticus; K21.9 Gastro-esophageal reflux disease without esophagitis; Z88.0 Allergy status to penicillin; Z88.5 Allergy status to narcotic agent
CPT/HCPCS: 36415; 80053; 85025; 96361; 96374

== ENCOUNTER → 2021-12-08 | Outpatient (CLI) | payer MEDICARE, MEDICAID ==
[~2021-12-08] VITALS: Ht 165 cm; Wt 86.8 kg
[~2021-12-08] MED LIST changes: +ACETAMINOPHEN 500 MG TAB (TYLENOL) PO PRN; +EPINEPHrine INJECTION 1 MG/ML AMP IM PRN; +ONDANSETRON 4 MG/2 ML (SDV) Z0FRAN IV PRN; +SOTROVIMAB 500 MG/NS 50 ML IVPB IV ONE; +diphenhydrAMINE 50 MG/ML INJ (BENADRYL) IV PRN
[2021-12-08 08:50] VITALS: BP 144/86
[2021-12-08 10:28] VITALS: BP 136/85
== END ==
LOC: INFUSION 08:44
PROVIDERS: ATTEND Nurse Practitioner Family
DX: U07.1 COVID-19 (principal); F79 Unspecified intellectual disabilities; R56.9 Unspecified convulsions; E66.9 Obesity, unspecified; Z68.31 Body mass index [BMI] 31.0-31.9, adult

== ENCOUNTER 2023-06-25 12:31 | Emergency (ER) | payer MEDICARE, MEDICAID ==
[~2023-06-25] VITALS: Ht 165 cm; Wt 95.2 kg
[~2023-06-25 12:31] MED LIST changes: -ACETAMINOPHEN 500 MG TAB (TYLENOL) PO PRN; -EPINEPHrine INJECTION 1 MG/ML AMP IM PRN; -ONDANSETRON 4 MG/2 ML (SDV) Z0FRAN IV PRN; -SOTROVIMAB 500 MG/NS 50 ML IVPB IV ONE; -diphenhydrAMINE 50 MG/ML INJ (BENADRYL) IV PRN
[2023-06-25] MEDS ORDERED: fentaNYL INJECTION 100 MCG/2 ML VIAL IVP STA (12:34)
[2023-06-25] MEDS ORDERED: LACTATED RINGERS 1,000 ML 1,000 ML IV ONE (12:45)
--- NOTE | 2023-06-25 13:02 | ED Fall/Injury ---
General Chief Complaint: Trauma-Non Activation Stated Complaint: LEFT HIP PAIN Nursing Triage Note: PT PRESENTS TO ED VIA EMS FROM HOME WITH COMPLAINTS OF L THIGH/HIP/KNEE PAIN, L WRIST PAIN, AND ABRASION TO R PAEZ AFTER FALLING WHEN SHE TRIPPED OVER AND ELEVATED STEP AT HER HOUSE. PT DENIES HEAD PAIN BUT UNSURE IF SHE HIT IT DURRING THE FALL. 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 PT IS AT NORMAL BASELINE MENTATION PT HAS HISTORY OF SEIZURES AND HTN. PCP: JASMINE ROY Allergies and Home Medications Allergies Coded Allergies: Penicillins (Verified Allergy, Severe, CONFUSION, 05/07/20) codeine (Verified Allergy, Severe, CONFUSION, 05/07/20) Patient Home Medication List Folic Acid (Folic Acid) 0.8 Mg Capsule, 0.8 MG PO DAILY, (Reported) Entered as Reported by: DELMY BURR on 05/07/20 1144 Omeprazole (Omeprazole) 20 Mg Capsule.dr, 20 MG PO DAILY, (Reported) Entered as Reported by: DELMY BURR on 05/07/20 1144 Review of Systems Review of Systems Constitutional: no symptoms reported Respiratory: no symptoms reported Cardiovascular: no symptoms reported Gastrointestinal: no symptoms reported Musculoskeletal: see HPI Skin: other (ABRASION TO RIGHT PAEZ) Psychiatric/Neurological: See HPI Past Ezggxqz-Xdvadw-Eqxlsg Hx Patient Social History Tobacco Use?: No Substance use?: No Alcohol Use?: No Pt feels they are or have been: No Seasonal Allergies Seasonal Allergies: Yes Past Medical History Surgeries: Yes (KNEE SCOPE, WISDOM TEETH) Appendectomy, Orthopedic Respiratory: No Cardiac: Yes Hypertension Neurological: Yes (MR, LAST SEIZURE 03/27) Developmental Disorder, 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 oz. 77.630639th; 34.00 BMI Method:Stated General Appearance: WD/WN, no apparent distress, other (PT CRIES INTERMITTENTLY) HEENT: PERRL/EOMI, other (NO EXTERNAL EVIDENCE OF TRAUMA TO HEAD) Neck: non-tender, full range of motion, supple, normal inspection Cardiovascular: normal peripheral pulses, regular rate, rhythm, no edema, no JVD, no murmur Respiratory: chest non-tender, normal breath sounds, no respiratory distress, no accessory muscle use Peripheral Pulses: 2+ Dorsalis Pedis (R), 2+ Left Dors-Pedis (L), 2+ Radial Pulses (R), 2+ Radial Pulses (L) Gastrointestinal: non tender, soft Back: normal inspection, no CVA tenderness, no vertebral tenderness Extremities: no pedal edema, normal capillary refill, other (ABRASION TO ANTERIOR ASPECT OF RIGHT LOWER LEG WITH MILD TENDERNESS TO AREA. LEFT HIP TENDERNESS, LEFT KNEE TENDERNESS WITH SOME SWELLING TO LEFT KNEE. LEFT WRIST TENDERNESS WITH MILD SWELLING TO LEFT WRIST. LIMITED ROM OF THESE AREAS DUE TO PAIN, DISTAL MOTOR/SENSORY/VASCULAR INTACT. 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 ) Skin: normal color, warm/dry Progress/Results/Core Measures Results/Orders Lab Results Laboratory Tests Test 06/25/23 13:44 Range/Units White Blood Count 6.7 4.3-11.0 10^3/uL Red Blood Count 4.62 3.80-5.11 10^6/uL Hemoglobin 14.6 11.5-16.0 g/dL Hematocrit 44 35-52 % Mean Corpuscular Volume 96 80-99 fL Mean Corpuscular Hemoglobin 32 25-34 pg Mean Corpuscular Hemoglobin Concent 33 32-36 g/dL Red Cell Distribution Width 13.8 10.0-14.5 % Platelet Count 233 130-400 10^3/uL Mean Platelet Volume 9.9 9.0-12.2 fL Immature Granulocyte % (Auto) 0 % Neutrophils (%) (Auto) 56 42-75 % Lymphocytes (%) (Auto) 33 12-44 % Monocytes (%) (Auto) 10 0-12 % Eosinophils (%) (Auto) 1 0-10 % Basophils (%) (Auto) 1 0-10 % Neutrophils # (Auto) 3.7 1.8-7.8 10^3/uL Lymphocytes # (Auto) 2.2 1.0-4.0 10^3/uL Monocytes # (Auto) 0.7 0.0-1.0 10^3/uL Eosinophils # (Auto) 0.1 0.0-0.3 10^3/uL Basophils # (Auto) 0.0 0.0-0.1 10^3/uL Immature Granulocyte # (Auto) 0.0 0.0-0.1 10^3/uL Sodium Level 141 135-145 MMOL/L Potassium Level 4.6 3.6-5.0 MMOL/L Chloride Level 107 98-107 MMOL/L Glucose Level 92 70-105 MG/DL Calcium Level 9.0 8.5-10.1 MG/DL Corrected Calcium 9.2 8.5-10.1 MG/DL Total Protein 6.4 6.4-8.2 GM/DL Albumin 3.8 3.2-4.5 GM/DL My Orders Orders - EMIGDIO BEAN DO Ed Iv/Invasive Line Start (06/25/23 12:34) Monitor-Rhythm Ecg Trace Only (06/25/23 12:34) Ct Head/Cervical Spine Wo (06/25/23 12:34) Chest 1 View, Ap/Pa Only (06/25/23 12:34) Forearm, Left, 2 Views (06/25/23 12:34) Wrist, Left, 3 Views Or More (06/25/23 12:34) Femur, Left, 2 Views (06/25/23 12:34) Knee, Left, 3 Views (06/25/23 12:34) Pelvis With Left Hip 2-3 Views (06/25/23 12:34) Cbc With Automated Diff (06/25/23 12:34) Comprehensive Metabolic Panel (06/25/23 12:34) Protime With Inr (06/25/23 12:34) Partial Thromboplastin Time (06/25/23 12:34) Ed Iv/Invasive Line Start (06/25/23 12:34) Lactated Ringers 1,000 Ml (Lactated Ring (06/25/23 12:45) Fentanyl Injection (Fentanyl Injection (06/25/23 12:34) Dipht/Pertuss(Acell)/Tet Adult (Dipht/Pe (06/25/23 13:15) Tibia/Fibula, Bilateral, 2view (06/25/23 12:34) Valproic Acid (06/25/23 13:56) Medications Given in ED Current Medications Medications Dose Ordered Sig/Kathy Route Start Time Stop Time Status Last Admin Dose Admin Diphtheria/ Tetanus/Acell Pertussis 0.5 ml ONCE ONCE IM 06/25/23 13:15 06/25/23 13:16 DC 06/25/23 13:43 0.5 ML Lactated Ringer's 1,000 ml @ 0 mls/hr Q0M ONCE IV 06/25/23 12:45 06/25/23 12:46 DC 06/25/23 12:41 0 MLS/HR Vital Signs/I&O 06/25/23 12:33 Temp 36.9 Pulse 93 Resp 16 B/P (MAP) 148/95 (112) Pulse Ox 99 Blood Pressure Mean: [address] HEAD/CERVICAL SPINE--PER RADIOLOGIST REPORT AT [address] HEAD: There is no hemorrhage, hydrocephalus, cerebral edema, mass, mass effect nor evidence for elevated pressures. Orbits, sinuses and calvarium nonacute. No hemo-sinus. No pneumocephalus. CERVICAL SPINE: There are degenerative changes to the mid to lower cervical spine aligned anatomically, no fracture or dislocation. No paraspinal hemorrhage. No cervical hematoma. The airway patent. The prevertebral and retropharyngeal spaces normal. The central skull base intact. Craniocervical relationship normal. Thoracic inlet and both tops of the pulmonary apices nonacute. IMPRESSION: CT head: No hemorrhage, fracture or acute finding. CT cervical spine: Degenerative disease, but no fracture or traumatic malalignment. XRAYS--PER RADIOLOGIST REPORTS AT 1405 Reviewed: Reviewed by Me Departure Impression Primary Impression: Fall from standing Additional Impressions: Contusion of left hip and thigh Contusion of left knee and lower leg Contusion of right lower leg Abrasion, right lower leg, initial encounter Itccilzaos-zkhovkjue-lulnwce (DPT) vaccination administered at current visit Disposition: HOME, SELF-CARE Condition: Stable Departure-Patient Inst. Referrals: NO,LOCAL PHYSICIAN (PCP) Primary Care Physician SHELLIE ROY (Family) Primary Care Physician Patient Instructions: Contusion (DC), Diphtheria and Tetanus Toxoids, and Acellular Pertussis Vaccine, General Trauma, Adult ED, Preventing Falls ED, Skin Abrasions (DC) Add. Discharge Instructions: ICE TO SORE AREAS AT 20 MINUTE INTERVALS TYLENOL 1000 MG AND MOTRIN 800 MG EVERY 6 HOURS FOR PAIN FOLLOW UP WITH YOUR DR IN 1 WEEK IF NO BETTER All discharge instructions reviewed with patient and/or family. Voiced understanding. EMIGDIO BEAN DO Jun 25, 2023 13:02
[2023-06-25] MEDS ORDERED: Tetanus/Diphtheria/Pertussis (Acell) ADULT Vaccine 0.5 ML IM ONE (13:15)
--- NOTE | 2023-06-25 13:26 | Diagnostic Imaging Report ---
PROCEDURE: CT head and CT cervical spine without contrast. TECHNIQUE: Multiple contiguous axial images were obtained through the brain and cervical spine without the use of intravenous contrast. Sagittal and coronal reformations through the cervical spine were then performed. Auto Exposure Controls were utilized during the CT exam to meet ALARA standards for radiation dose reduction. INDICATION: Trauma, head and neck injury and pain. No priors CT HEAD: There is no hemorrhage, hydrocephalus, cerebral edema, mass, mass effect nor evidence for elevated pressures. Orbits, sinuses and calvarium nonacute. No hemo-sinus. No pneumocephalus. CERVICAL SPINE: There are degenerative changes to the mid to lower cervical spine aligned anatomically, no fracture or dislocation. No paraspinal hemorrhage. No cervical hematoma. The airway patent. The prevertebral and retropharyngeal spaces normal. The central skull base intact. Craniocervical relationship normal. Thoracic inlet and both tops of the pulmonary apices nonacute. IMPRESSION: CT head: No hemorrhage, fracture or acute finding. CT cervical spine: Degenerative disease, but no fracture or traumatic malalignment. Dictated by: Dictated on workstation # [id number]
[2023-06-25 13:50] LABS: BASOPHILS % (AUTO) 1 % (0-10); EOSINOPHILS # (AUTO) 0.1 10^3/uL (0.0-0.3); EOSINOPHILS % (AUTO) 1 % (0-10); HEMATOCRIT 44 % (35-52); HEMOGLOBIN 14.6 g/dL (11.5-16.0); LYMPHOCYTES # (AUTO) 2.2 10^3/uL (1.0-4.0); LYMPHOCYTES % (AUTO) 33 % (12-44); MEAN CORPUSCULAR HEMOGLOBIN 32 pg (25-34); MEAN CORPUSCULAR HGB CONC 33 g/dL (32-36); MEAN CORPUSCULAR VOLUME 96 fL (80-99); MEAN PLATELET VOLUME 9.9 fL (9.0-12.2); MONOCYTES # (AUTO) 0.7 10^3/uL (0.0-1.0); MONOCYTES % (AUTO) 10 % (0-12); NEUTROPHILS # (AUTO) 3.7 10^3/uL (1.8-7.8); NEUTROPHILS % (AUTO) 56 % (42-75); PLATELET COUNT 233 10^3/uL (130-400); WHITE BLOOD COUNT 6.7 10^3/uL (4.3-11.0)
--- NOTE | 2023-06-25 13:55 | Diagnostic Imaging Report ---
PELVIS WITH LEFT HIP 2-3 VIEWS INDICATION: Left hip pain COMPARISON: None available. TECHNIQUE: AP pelvis with AP and lateral views of the hip. FINDINGS: No acute fracture about the left hip. No displaced fracture within the pelvis. SI joints, hips and symphysis pubis are all normal alignment. No unintended radiopaque foreign body. IMPRESSION: No acute fracture about the left hip. Dictated by: Dictated on workstation # [id number]
--- NOTE | 2023-06-25 13:56 | Diagnostic Imaging Report ---
FEMUR, LEFT, 2 VIEWS INDICATION: Left femur pain COMPARISON: None available. TECHNIQUE: 2 views of the left femur. FINDINGS: Alignment of the hip and knee is normal. No acute fracture seen. No unintended radiopaque foreign body. IMPRESSION: No acute fracture within left femur. Dictated by: Dictated on workstation # [id number]
--- NOTE | 2023-06-25 13:57 | Diagnostic Imaging Report ---
KNEE, LEFT, 3 VIEWS COMPARISON: None available. INDICATION: Left knee pain TECHNIQUE: Non-weight bearing AP, oblique, and lateral views of the left knee. FINDINGS: No fracture or traumatic malalignment. Mild tricompartmental osteoarthritis. No knee joint effusion. IMPRESSION: No acute fracture about the left knee. Dictated by: Dictated on workstation # [id number]
--- NOTE | 2023-06-25 13:57 | Diagnostic Imaging Report ---
Indication: Fall, chest pain. Compared with study 04/06/2020 Findings: The lungs are clear. No pneumothorax or hemothorax. Cardiomediastinal and hilar contours unremarkable. No displaced or appreciable chest fracture or deformity. Impression: Unremarkable stable frontal chest. Dictated by: Dictated on workstation # [id number]
--- NOTE | 2023-06-25 13:58 | Diagnostic Imaging Report ---
TIBIA/FIBULA, BILATERAL, 2VIEW INDICATION: Bilateral lower leg pain COMPARISON: None available. TECHNIQUE: 2 views of each tibia and fibula for total 4 views FINDINGS: There is no acute fracture on either side. Alignment is normal in size. No unintended radiopaque foreign body. IMPRESSION: No acute osseous abnormality in either of the lower legs. Dictated by: Dictated on workstation # [id number]
--- NOTE | 2023-06-25 13:58 | Diagnostic Imaging Report ---
Indication: Pain. Findings: A 2 view left forearm performed. No fracture, dislocation or acute abnormality. There is an Angiocath at the antecubital fossa with no suspicious foreign body. There is arthritis at the wrist and elbows. Impression: No acute-appearing abnormality. Dictated by: Dictated on workstation # [id number]
[2023-06-25 14:01] LABS: ALBUMIN 3.8 GM/DL (3.2-4.5); INR 0.9 (0.8-1.4); POTASSIUM 4.6 MMOL/L (3.6-5.0); PROTHROMBIN TIME PATIENT 12.1 SEC (12.2-14.7)
[2023-06-25 14:04] LABS: TOTAL PROTEIN 6.4 GM/DL (6.4-8.2)
[2023-06-25 14:05] LABS: BILIRUBIN,TOTAL 0.3 MG/DL (0.1-1.0)
--- NOTE | 2023-06-25 14:06 | Diagnostic Imaging Report ---
WRIST, LEFT, 3 VIEWS OR MORE INDICATION: Left wrist pain COMPARISON: None available. TECHNIQUE: 3 views left wrist FINDINGS: Alignment is normal. There is no acute fracture. No features of avascular necrosis of lunate. No soft tissue swelling around the wrist. No unintended radiopaque foreign body. IMPRESSION: No fracture about the left wrist. Dictated by: Dictated on workstation # [id number]
[2023-06-25 14:07] LABS: CREATININE SERUM 1.06 MG/DL (0.60-1.30)
[2023-06-25 14:27] VITALS: BP 145/89
== END 2023-06-25 14:21 | disposition home or self-care (01) ==
LOC: EDUNIT# 12:31 → ER 12:32
DX: S70.02XA Contusion of left hip, initial encounter (principal); S70.12XA Contusion of left thigh, initial encounter; S80.02XA Contusion of left knee, initial encounter; S80.11XA Contusion of right lower leg, initial encounter; M25.532 Pain in left wrist; Z23 Encounter for immunization; W10.9XXA Fall (on) (from) unspecified stairs and steps, initial encounter; Y92.009 Unspecified place in unspecified non-institutional (private) residence as the place of occurrence of the external cause
CPT/HCPCS: 36415; 70450; 71045; 72125; 73090; 73110; 73552; 73562; 80053; 80164; 85025; 85610; 85730; 90715

== ENCOUNTER 2023-09-16 01:07 | Emergency (ER) | payer MEDICARE, MEDICAID ==
[~2023-09-16] VITALS: Ht 165.1 cm; Wt 100.0 kg
--- NOTE | 2023-09-16 01:22 | ED General ---
General Chief Complaint: Chest Pain Stated Complaint: COUGH,SORE THROAT,CHEST DISCOMFORT Source of Information: Patient Exam Limitations: No Limitations History of Present Illness Date Seen by Provider: Sep 16, 2023 Time Seen by Provider: 01:04 Initial Comments 63-year-old female presents via EMS from home for sore throat, cough and chest discomfort. Sore throat and cough present for 2 days. Chest discomfort started this evening about 3 to 4 hours prior to arrival. No known cardiac history. Several sick contacts in the home. No other recent illness. All other systems reviewed and negative except documented per HPI. Voice recognition software was used to help create this chart Allergies and Home Medications Allergies Coded Allergies: Penicillins (Verified Allergy, Severe, CONFUSION, 05/07/20) codeine (Verified Allergy, Severe, CONFUSION, 05/07/20) Patient Home Medication List Home Medication List Reviewed: Yes Folic Acid (Folic Acid) 0.8 Mg Capsule, 0.8 MG PO DAILY, (Reported) Entered as Reported by: DELMY BURR on 05/07/20 1144 Omeprazole (Omeprazole) 20 Mg Capsule.dr, 20 MG PO DAILY, (Reported) Entered as Reported by: DELMY BURR on 05/07/20 1144 Review of Systems Review of Systems Constitutional: see HPI Past Krvdgxa-Kefxjk-Zpkxvk Hx Patient Social History Tobacco Use?: No Use of E-Cig and/or Vaping dev: No Substance use?: No Alcohol Use?: No Seasonal Allergies Seasonal Allergies: Yes Past Medical History Surgeries: Yes (KNEE SCOPE, WISDOM TEETH) Appendectomy, Orthopedic Respiratory: No Cardiac: Yes Hypertension Neurological: Yes (MR, LAST SEIZURE 03/27) Developmental Disorder, 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 oz. 77.043041nn; 34.00 BMI Method:Stated General Appearance: No Apparent Distress, WD/WN Eyes: Bilateral Eye Normal Inspection, Bilateral Eye PERRL, Bilateral Eye EOMI HEENT: Other (Mild posterior oropharyngeal erythema. Tonsils are normal. Uvula is midline.) Respiratory: Chest Non Tender, Lungs Clear, Normal Breath Sounds, No Accessory Muscle Use, No Respiratory Distress Cardiovascular: Regular Rate, Rhythm, No Murmur, Normal Peripheral Pulses Gastrointestinal: Normal Bowel Sounds, No Organomegaly, Non Tender, Soft Extremity: Normal Capillary Refill, Other (3+ pitting edema bilateral lower extremities) Neurologic/Psychiatric: Alert, Oriented x3 Skin: Normal Color, Warm/Dry Progress/Results/Core Measures Suspected Sepsis SIRS Temperature: Pulse: Respiratory Rate: Laboratory Tests 09/16/23 01:12: White Blood Count 9.1 Blood Pressure / Mean: Laboratory Tests 09/16/23 01:12: Creatinine 1.01, Platelet Count 265, Total Bilirubin 0.2 Results/Orders Lab Results Laboratory Tests Test 09/16/23 01:12 09/16/23 01:15 Range/Units White Blood Count 9.1 4.3-11.0 10^3/uL Red Blood Count 4.50 3.80-5.11 10^6/uL Hemoglobin 14.2 11.5-16.0 g/dL Hematocrit 43 35-52 % Mean Corpuscular Volume 95 80-99 fL Mean Corpuscular Hemoglobin 32 25-34 pg Mean Corpuscular Hemoglobin Concent 33 32-36 g/dL Red Cell Distribution Width 12.8 10.0-14.5 % Platelet Count 265 130-400 10^3/uL Mean Platelet Volume 9.7 9.0-12.2 fL Immature Granulocyte % (Auto) 0 % Neutrophils (%) (Auto) 50 42-75 % Lymphocytes (%) (Auto) 37 12-44 % Monocytes (%) (Auto) 12 0-12 % Eosinophils (%) (Auto) 1 0-10 % Basophils (%) (Auto) 0 0-10 % Neutrophils # (Auto) 4.6 1.8-7.8 10^3/uL Lymphocytes # (Auto) 3.3 1.0-4.0 10^3/uL Monocytes # (Auto) 1.0 0.0-1.0 10^3/uL Eosinophils # (Auto) 0.1 0.0-0.3 10^3/uL Basophils # (Auto) 0.0 0.0-0.1 10^3/uL Immature Granulocyte # (Auto) 0.0 0.0-0.1 10^3/uL Sodium Level 138 135-145 MMOL/L Potassium Level 4.6 3.6-5.0 MMOL/L Chloride Level 105 98-107 MMOL/L Carbon Dioxide Level 23 21-32 MMOL/L Anion Gap 10 5-14 MMOL/L Blood Urea Nitrogen 16 7-18 MG/DL Creatinine 1.01 0.60-1.30 MG/DL Estimat Glomerular Filtration Rate 63 BUN/Creatinine Ratio 16 Glucose Level 102 70-105 MG/DL Calcium Level 9.0 8.5-10.1 MG/DL Corrected Calcium 9.1 8.5-10.1 MG/DL Magnesium Level 2.3 1.6-2.4 MG/DL Total Bilirubin 0.2 0.1-1.0 MG/DL Aspartate Amino Transf (AST/SGOT) 17 5-34 U/L Alanine Aminotransferase (ALT/SGPT) 20 0-55 U/L Alkaline Phosphatase 77 40-136 U/L Troponin I < 0.028 <0.028 NG/ML Total Protein 6.8 6.4-8.2 GM/DL Albumin 3.9 3.2-4.5 GM/DL Group A Streptococcus Screen Not Detected NotDetected My Orders Orders - ARA RUIZ DO Cbc And Automated Diff (09/16/23 01:14) Magnesium (09/16/23 01:14) Chest 1 View, Ap/Pa Only (09/16/23 01:14) Ekg Tracing (09/16/23 01:14) Comprehensive Metabolic Panel (09/16/23 01:14) Ed Iv/Invasive Line Start (09/16/23 01:14) Troponin I Eddie (09/16/23 01:14) Rapid Strep A Screen (09/16/23 01:14) Ketorolac Injection (Ketorolac Injection (09/16/23 01:30) Medications Given in ED Current Medications Medications Dose Ordered Sig/Kathy Route Start Time Stop Time Status Last Admin Dose Admin Ketorolac Tromethamine 15 mg ONCE ONCE IVP 09/16/23 01:30 09/16/23 01:31 DC 09/16/23 01:50 15 MG Vital Signs/I&O 09/16/23 09/16/23 01:10 01:10 Temp 36.5 Pulse 99 Resp 16 B/P (MAP) 176/110 (132) Pulse Ox 96 O2 Delivery Room Air Room Air Capillary Refill : ECG Comment Sinus rhythm at a rate of 89 bpm. Normal intervals. Normal axis. No ST or T wave abnormalities. No ectopy. No STEMI. Departure Communication (Admissions) Patient is hemodynamically stable. She is exquisitely tender across her ante rior chest wall. Symptoms are not consistent with cardiac etiology. Her heart score is 2. Chest x-ray is negative for any acute cardiopulmonary abnormality. EKG is nonischemic and troponin is negative. She had improvement in her pain with Toradol here. Strep test is negative. No evidence for peritonsillar abscess or other acute medical emergent condition at this time. She is discharged home in stable condition with supportive care and close follow-up. Impression Primary Impression: Viral URI with cough Disposition: HOME, SELF-CARE Condition: Stable Departure-Patient Inst. Referrals: NO,LOCAL PHYSICIAN (PCP) Primary Care Physician SHELLIE ROY (Family) Primary Care Physician Patient Instructions: Viral Upper Respiratory Infection, Adult (DC) Add. Discharge Instructions: No emergent medical conditions are identified for your symptoms today. Recommend use ibuprofen and Tylenol as needed for sore throat. Increase your fluids at home and rest as needed. Return to the emergency department for any severe concerns. Follow-up with your primary care physician for any nonemergent needs. All discharge instructions reviewed with patient and/or family. Voiced understanding. ARA RUIZ DO Sep 16, 2023 01:21
[2023-09-16 01:24] LABS: BASOPHILS % (AUTO) 0 % (0-10); EOSINOPHILS # (AUTO) 0.1 10^3/uL (0.0-0.3); EOSINOPHILS % (AUTO) 1 % (0-10); HEMATOCRIT 43 % (35-52); HEMOGLOBIN 14.2 g/dL (11.5-16.0); LYMPHOCYTES # (AUTO) 3.3 10^3/uL (1.0-4.0); LYMPHOCYTES % (AUTO) 37 % (12-44); MEAN CORPUSCULAR HEMOGLOBIN 32 pg (25-34); MEAN CORPUSCULAR HGB CONC 33 g/dL (32-36); MEAN CORPUSCULAR VOLUME 95 fL (80-99); MEAN PLATELET VOLUME 9.7 fL (9.0-12.2); MONOCYTES % (AUTO) 12 % (0-12); NEUTROPHILS # (AUTO) 4.6 10^3/uL (1.8-7.8); NEUTROPHILS % (AUTO) 50 % (42-75); PLATELET COUNT 265 10^3/uL (130-400); WHITE BLOOD COUNT 9.1 10^3/uL (4.3-11.0)
[2023-09-16 01:29] LABS: ALBUMIN 3.9 GM/DL (3.2-4.5)
[2023-09-16 01:30] LABS: CHLORIDE 105 MMOL/L (98-107); POTASSIUM 4.6 MMOL/L (3.6-5.0); SODIUM 138 MMOL/L (135-145)
[2023-09-16] MEDS ORDERED: KETOROLAC INJ 15 MG/ML VIAL IVP ONE (01:30)
[2023-09-16 01:32] LABS: GLUCOSE 102 MG/DL (70-105); TOTAL PROTEIN 6.8 GM/DL (6.4-8.2)
[2023-09-16 01:33] LABS: CARBON DIOXIDE 23 MMOL/L (21-32)
[2023-09-16 01:34] LABS: BILIRUBIN,TOTAL 0.2 MG/DL (0.1-1.0)
[2023-09-16 01:35] LABS: ALKALINE PHOSPHATASE 77 U/L (40-136)
[2023-09-16 01:36] LABS: CREATININE SERUM 1.01 MG/DL (0.60-1.30); GFR ESTIMATED 63
[2023-09-16 01:37] LABS: BUN/CREATININE RATIO 16
[2023-09-16 01:38] LABS: MAGNESIUM 2.3 MG/DL (1.6-2.4)
[2023-09-16 01:39] LABS: ALANINE AMINOTRANSFERASE 20 U/L (0-55)
[2023-09-16 02:05] VITALS: BP 153/84
--- NOTE | 2023-09-16 07:52 | Diagnostic Imaging Report ---
Indication: Chest pain. Comparison: 06/25/2023 Findings: Lungs clear. No failure, effusion or pneumothorax. Impression: No acute-appearing abnormality. Dictated by: Dictated on workstation # [id number]
== END 2023-09-16 02:05 | disposition home or self-care (01) ==
LOC: EDUNIT# 01:07 → ER 01:09
DX: J06.9 Acute upper respiratory infection, unspecified (principal)
CPT/HCPCS: 36415; 71045; 80053; 83735; 84484; 85025; 87430; 93005